=== PATIENT | female | born 1965 | race Caucasian/White ===

== ENCOUNTER → 2017-03-05 | Outpatient (REF) | payer BC | LOC: M LAB REF 13:03 | PROVIDERS: ATTEND Surgery | DX: R82.90 Unspecified abnormal findings in urine (principal) ==

== ENCOUNTER → 2017-05-14 | Outpatient (CLI) | payer BC ==
[~2017-05-14] MED LIST: BACL10TA2 PO; BACL1TAB9 PO; CRAN500C2 PO; D-MAPOW4 XX; ESTRCAP PO; FLUT1SPR2; GABA-279 PO; GABA-283 PO; GENT; METH1CAP4 PO; METH1TAB2 PO; MULT1TAB10 PO; OXYB5TAB10 PO; PANT40TA2 PO; POLY1POW4 PO; PROBCAP15 PO; TROS60CA2 PO; VITA1CAP6 PO; [UNRECOGNIZED DRUG - OTHER] BLADIN
[2017-05-14 17:57] LABS: WHITE BLOOD COUNT 4.5 K/mm3 (4.0-10.0)
[2017-05-14 17:58] LABS: BASO % 0.6 % (0.0-1.0); EOS # 0.1 K/mm3 (0.0-0.50); EOS % 2.1 % (0.0-3.0); LARGE UNSTAINED CELL # 0.1 K/mm3 (0.0-0.4); LARGE UNSTAINED CELL % 2.4 % (0.0-4.0); LYMPH # 1.6 K/mm3 (1.5-4.5); LYMPH % 35.8 % (24.0-44.0); MEAN CORPUSCULAR HEMOGLOBIN 30.8 pg (27.0-33.0); MEAN CORPUSCULAR HGB CONC 34.3 g/dl (32.0-36.5); MEAN CORPUSCULAR VOLUME 89.7 fl (80.0-96.0); MONO # 0.3 K/mm3 (0.0-0.8); MONO % 5.5 % (0.0-5.0); NEUTROPHILS # 2.4 K/mm3 (1.8-7.7); NEUTROPHILS % 53.6 % (36.0-66.0); PLATELET COUNT, AUTOMATED 380 k/mm3 (150-450); RED CELL DISTRIBUTION WIDTH 12.3 % (11.5-14.5)
[2017-05-14 18:20] LABS: ALBUMIN/GLOBULIN RATIO 1.18 (1.00-1.93); ALKALINE PHOSPHATASE 70 U/L (45-117); ALT/SGPT 31 U/L (12-78); ANION GAP 9 MEQ/L (8-16); AST/SGOT 20 U/L (15-37); BILIRUBIN,TOTAL 0.3 MG/DL (0.2-1.0); BLOOD UREA NITROGEN 7 MG/DL (7-18); CALCIUM LEVEL 9.1 MG/DL (8.5-10.1); CARBON DIOXIDE LEVEL 28 MEQ/L (21-32); CHLORIDE LEVEL 106 MEQ/L (98-107); CREATININE FOR GFR 0.64 MG/DL (0.55-1.02); GLOMERULAR FILTRATION RATE > 60.0 (>51); GLUCOSE, FASTING 87 MG/DL (70-105); POTASSIUM SERUM 4.1 MEQ/L (3.5-5.1); SODIUM LEVEL 143 MEQ/L (136-145); TOTAL PROTEIN 7.4 GM/DL (6.4-8.2)
[2017-05-15 08:40] LABS: CONTROL LINE HPYORI INT CTR LINE PRESENT
== END ==
LOC: M SMT 12:16
PROVIDERS: ATTEND Family Medicine
DX: R53.83 Other fatigue (principal); R11.0 Nausea

== ENCOUNTER → 2017-11-17 | Outpatient (CLI) | payer BC ==
[2017-11-17 14:00] LABS: APPEARANCE, URINE CLOUDY (CLEAR); BACTERIA, URINE AUTO 2+ (NEGATIVE); BILIRUBIN, URINE AUTO NEGATIVE (NEGATIVE); BLOOD, URINE BLOOD NEGATIVE (NEGATIVE); COLOR, URINE YELLOW (YELLOW); GLUCOSE, URINE (UA) AUTO NEGATIVE (NEGATIVE); KETONE, URINE AUTO NEGATIVE (NEGATIVE); LEUKOCYTE ESTERASE, URINE AUTO 2+ (NEGATIVE); MUCUS, URINE SMALL (NEGATIVE); NITRITE, URINE AUTO NEGATIVE (NEGATIVE); PROTEIN, URINE AUTO NEGATIVE (NEGATIVE); RBC, URINE AUTO 1 /HPF (0-3); SPECIFIC GRAVITY URINE AUTO 1.014 (1.002-1.035); SQUAMOUS EPITHELIAL CELL UR AU 0 /HPF (0-6); UROBILINOGEN, URINE AUTO 0.2 mg/dL (0.0-2.0); WBC, URINE AUTO 87 /HPF (0-3)
[2017-11-17 14:20] LABS: BASO % 0.8 % (0.0-1.0); EOS # 0.1 10^3/uL (0.0-0.50); EOS % 3.1 % (0.0-3.0); HEMATOCRIT 43.3 % (36.0-47.0); HEMOGLOBIN 14.3 g/dl (12.0-16.0); IMMATURE GRANULOCYTE % 0.3 % (0-3.0); LYMPH # 1.4 10^3/uL (1.5-4.5); LYMPH % 35.7 % (24.0-44.0); MEAN CORPUSCULAR HEMOGLOBIN 29.7 pg (27.0-33.0); MONO # 0.3 10^3/uL (0.0-0.8); MONO % 6.8 % (0.0-5.0); NEUTROPHILS # 2.1 10^3/uL (1.8-7.7); NEUTROPHILS % 53.3 % (36.0-66.0); PLATELET COUNT, AUTOMATED 326 10^3/uL (150-450); RED BLOOD COUNT 4.81 10^6/uL (4.00-5.40); RED CELL DISTRIBUTION WIDTH 12.3 % (11.5-14.5); WHITE BLOOD COUNT 3.8 10^3/uL (4.0-10.0)
[2017-11-17 14:38] LABS: ALBUMIN 4.3 GM/DL (3.2-5.2); ALBUMIN/GLOBULIN RATIO 1.39 (1.00-1.93); ALKALINE PHOSPHATASE 72 U/L (45-117); ALT/SGPT 36 U/L (12-78); ANION GAP 5 MEQ/L (8-16); AST/SGOT 23 U/L (7-37); BILIRUBIN,TOTAL 0.3 MG/DL (0.2-1.0); BLOOD UREA NITROGEN 11 MG/DL (7-18); CALCIUM LEVEL 9.2 MG/DL (8.5-10.1); CARBON DIOXIDE LEVEL 32 MEQ/L (21-32); CHLORIDE LEVEL 105 MEQ/L (98-107); FREE T4 1.04 NG/DL (0.76-1.46); GLOMERULAR FILTRATION RATE > 60.0 (>51); GLUCOSE, FASTING 85 MG/DL (70-100); MAGNESIUM LEVEL 2.1 MG/DL (1.8-2.4); POTASSIUM SERUM 3.9 MEQ/L (3.5-5.1); SODIUM LEVEL 142 MEQ/L (136-145); TOTAL PROTEIN 7.4 GM/DL (6.4-8.2)
[2017-11-17 14:44] LABS: TOTAL 25(OH) VITAMIN D 33.9 NG/ML (30.0-100.0)
[2017-11-17 14:45] LABS: VITAMIN B12 LEVEL 667 PG/ML (247-911)
== END ==
LOC: M SMT 09:43
DX: R25.2 Cramp and spasm (principal); G82.22 Paraplegia, incomplete; N31.9 Neuromuscular dysfunction of bladder, unspecified; K59.2 Neurogenic bowel, not elsewhere classified; M79.2 Neuralgia and neuritis, unspecified; Z87.440 Personal history of urinary (tract) infections; R40.0 Somnolence
CPT/HCPCS: 83735

== ENCOUNTER → 2019-08-30 | Outpatient (CLI) | payer BC ==
[~2019-08-30] MED LIST changes: +GABA-1171 PO; -GABA-279 PO; -GABA-283 PO; +GABA-845 PO; +METH-855 PO; -METH1TAB2 PO; -PANT40TA2 PO; +PANT40TA3 PO; -POLY1POW4 PO; +POLY33503 PO
[2019-08-30 14:05] LABS: BASO % 0.6 % (0.0-1.0); EOS # 0.1 10^3/uL (0.0-0.5); EOS % 3.5 % (0.0-3.0); HEMATOCRIT 42.3 % (36.0-47.0); HEMOGLOBIN 13.8 g/dl (12.0-15.5); LYMPH % 29.2 % (24.0-44.0); MEAN CORPUSCULAR HGB CONC 32.6 g/dl (32.0-36.5); MONO # 0.3 10^3/uL (0.0-0.8); MONO % 8.5 % (0.0-5.0); NEUTROPHILS % 57.9 % (36.0-66.0); PLATELET COUNT, AUTOMATED 320 10^3/uL (150-450); WHITE BLOOD COUNT 3.4 10^3/uL (4.0-10.0)
[2019-08-30 14:29] LABS: ALBUMIN 4.3 GM/DL (3.2-5.2); ALT/SGPT 36 U/L (12-78); BILIRUBIN,TOTAL 0.4 MG/DL (0.2-1.0); BLOOD UREA NITROGEN 14 MG/DL (7-18); CALCIUM LEVEL 9.4 MG/DL (8.5-10.1); CARBON DIOXIDE LEVEL 31 MEQ/L (21-32); CHLORIDE LEVEL 105 MEQ/L (98-107); CHOLESTEROL LEVEL 265 MG/DL (<200); CHOLESTEROL RISK RATIO 4.206 (<5); CREATININE FOR GFR 0.77 MG/DL (0.55-1.30); GLOMERULAR FILTRATION RATE > 60.0 (>51); GLUCOSE, FASTING 80 MG/DL (70-100); HDL CHOLESTEROL 63 MG/DL (>40); LDL CHOLESTEROL 185 MG/DL (<100); NON-HDL-C 202 MG/DL; SODIUM LEVEL 143 MEQ/L (136-145); TOTAL PROTEIN 7.5 GM/DL (6.4-8.2); TRIGLYCERIDES LEVEL 86 MG/DL (<150)
== END ==
LOC: M PLALAB 08:54
PROVIDERS: ATTEND Family Medicine
DX: Z00.00 Encounter for general adult medical examination without abnormal findings (principal); E55.9 Vitamin D deficiency, unspecified

== ENCOUNTER → 2019-09-27 | Outpatient (CLI) | payer BC ==
[2019-09-27 19:10] LABS: BASO % 0.5 % (0.0-1.0); EOS # 0.2 10^3/uL (0.0-0.5); EOS % 3.7 % (0.0-3.0); HEMATOCRIT 43.2 % (36.0-47.0); LYMPH # 1.5 10^3/uL (1.5-5.0); LYMPH % 35.5 % (24.0-44.0); MEAN CORPUSCULAR HGB CONC 32.4 g/dl (32.0-36.5); MEAN CORPUSCULAR VOLUME 92.5 fl (80.0-96.0); MONO # 0.3 10^3/uL (0.0-0.8); MONO % 7.8 % (0.0-5.0); NEUTROPHILS # 2.3 10^3/uL (1.5-8.5); NEUTROPHILS % 52.3 % (36.0-66.0); PLATELET COUNT, AUTOMATED 312 10^3/uL (150-450); RED BLOOD COUNT 4.67 10^6/uL (4.00-5.40); WHITE BLOOD COUNT 4.3 10^3/uL (4.0-10.0)
[2019-09-27 19:27] LABS: ALBUMIN 4.3 GM/DL (3.2-5.2); ALT/SGPT 33 U/L (12-78); BILIRUBIN,DIRECT 0.1 MG/DL (0.0-0.2); BILIRUBIN,TOTAL 0.3 MG/DL (0.2-1.0); BLOOD UREA NITROGEN 11 MG/DL (7-18); CALCIUM LEVEL 9.2 MG/DL (8.5-10.1); CARBON DIOXIDE LEVEL 31 MEQ/L (21-32); CHLORIDE LEVEL 104 MEQ/L (98-107); CREATININE FOR GFR 0.69 MG/DL (0.55-1.30); GLOMERULAR FILTRATION RATE > 60.0 (>51); GLUCOSE, FASTING 90 MG/DL (70-100); PHOSPHORUS LEVEL 3.5 MG/DL (2.5-4.9); POTASSIUM SERUM 3.6 MEQ/L (3.5-5.1); SODIUM LEVEL 142 MEQ/L (136-145); TOTAL PROTEIN 7.3 GM/DL (6.4-8.2)
--- NOTE | 2019-09-28 01:41 | REPPI ---
Clinical: Monitoring . Comparison: 11/26/2011 . Technique: PA and lateral. Findings: The mediastinum and cardiac silhouette are normal. Evidence of prior thoracic spine fixation. The lung briseno are clear and without acute consolidation, effusion, or pneumothorax. Impression: 1. No acute cardiopulmonary process. Electronically Signed by Deejay Smith MD 09/28/2019 01:32 A
== END ==
LOC: M PLAIMG 15:26
PROVIDERS: ATTEND Nurse Practitioner
DX: L40.0 Psoriasis vulgaris (principal); Z51.81 Encounter for therapeutic drug level monitoring

== ENCOUNTER → 2019-11-18 | Outpatient (REF) | payer BC | LOC: M SFHCWAGY 09:57 | PROVIDERS: ATTEND Nurse Practitioner Family | DX: Z12.4 Encounter for screening for malignant neoplasm of cervix (principal) | CPT/HCPCS: 87624; G0123 ==

== ENCOUNTER 2020-02-29 22:46 | Emergency (ER) | payer BC ==
[~2020-02-29] VITALS: Ht 160 cm; Wt 69.5 kg
[2020-02-29] MEDS ORDERED: NS 1,000 ML IV ONE (23:30)
[2020-02-29] MEDS ORDERED: METOCLOPRAMIDE INJ 10MG/2ML VIAL (J2765 PER 1) IV ONE (23:30)
[2020-02-29] MEDS ORDERED: ACETAMINOPHEN TAB 650MG DOSE (2X325MG) PO ONE (23:30)
[2020-02-29 23:38] LABS: BASO % 0.2 % (0.0-1.0); EOS # 0.1 10^3/uL (0.0-0.5); EOS % 0.6 % (0.0-3.0); HEMATOCRIT 42.5 % (36.0-47.0); HEMOGLOBIN 14.1 g/dl (12.0-15.5); LYMPH # 0.7 10^3/uL (1.5-5.0); MEAN CORPUSCULAR HEMOGLOBIN 30.3 pg (27.0-33.0); MEAN CORPUSCULAR HGB CONC 33.2 g/dl (32.0-36.5); MEAN CORPUSCULAR VOLUME 91.2 fl (80.0-96.0); MONO # 1.1 10^3/uL (0.0-0.8); MONO % 8.2 % (0.0-5.0); NEUTROPHILS # 11.2 10^3/uL (1.5-8.5); NEUTROPHILS % 85.7 % (36.0-66.0); PLATELET COUNT, AUTOMATED 271 10^3/uL (150-450); RED BLOOD COUNT 4.66 10^6/uL (4.00-5.40); WHITE BLOOD COUNT 13.1 10^3/uL (4.0-10.0)
[2020-02-29] MEDS ORDERED: KETOROLAC 30 MG/ML 1ML VIAL IV ONE (23:45)
[2020-03-01 00:02] LABS: ALBUMIN 4.2 GM/DL (3.2-5.2); ALT/SGPT 41 U/L (12-78); BILIRUBIN,DIRECT 0.1 MG/DL (0.0-0.2); BILIRUBIN,TOTAL 0.5 MG/DL (0.2-1.0); CK-MB VALUE MASS < 1.0 NG/ML (<3.6); CPK CREATINE PHOSPHOKINASE 86 U/L (26-192); LIPASE 156 U/L (73-393); MB/CK RELATIVE INDEX 1.16 (< OR =4); TOTAL PROTEIN 7.8 GM/DL (6.4-8.2); TROPONIN I < 0.02 NG/ML (< 0.10)
[2020-03-01] MEDS ORDERED: REGL10TA6 PO (01:29)
[2020-03-01] MEDS ORDERED: ONDA4TAB6 PO (01:29)
[2020-03-01 01:31] VITALS: BP 95/51
--- NOTE | 2020-03-01 08:30 | ECGEPIP ---
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
== END 2020-03-01 02:25 | disposition home or self-care (01) ==
LOC: M ED 22:46
DX: K52.9 Noninfective gastroenteritis and colitis, unspecified (principal); N39.0 Urinary tract infection, site not specified; A49.8 Other bacterial infections of unspecified site; N31.9 Neuromuscular dysfunction of bladder, unspecified; Z88.2 Allergy status to sulfonamides; Z88.8 Allergy status to other drugs, medicaments and biological substances; Z79.899 Other long term (current) drug therapy
CPT/HCPCS: 51701; 80047; 80076; 81001; 82550; 82553; 83690; 84484; 85025; 87088; 87186; 93005; 93041; 96374; 96375; 99285; J1885; J2765

== ENCOUNTER → 2021-01-12 | Outpatient (REF) | payer BC ==
[~2021-01-12] MED LIST changes: +ONDA4TAB6 PO; +PANT40TA29 PO; -PANT40TA3 PO; +REGL10TA6 PO
== END ==
LOC: M LAB REF 17:02
PROVIDERS: ATTEND Surgery
DX: Z87.440 Personal history of urinary (tract) infections (principal)

== ENCOUNTER 2021-07-22 01:34 | Emergency (ER) | payer BC ==
[~2021-07-22] VITALS: Ht 160 cm; Wt 73.0 kg
[~2021-07-22 01:34] MED LIST changes: +GABA-283 PO; -GABA-845 PO
--- OUTSIDE RECORDS SUMMARY | 2021-07-22 01:40 | CCD | Continuity of Care Document ---
Author Author Christy GUERRERO M.D. Organization Unknown Address [address] [place] [id number] Phone [phone] Care Team Providers Care Edge Kitter Name Role Phone Ana Paula Figueroa M.D. AUTM [phone] Problems Active Problems Provider Date Obstructive sleep apnea syndrome Kar Guerrero M.D. Onset: 01/04/2016 Low back pain Kar Guerrero M.D. Onset: 01/04/2016 Incomplete paraplegia Kar Guerrero M.D. Onset: 01/04/2016 Hypersomnia Kar Guerrero M.D. Onset: 01/04/2016 Periodic limb movement disorder Kar Guerrero M.D. Onset: 0 05/07/2016 Migraine without aura, not refractory Kar Guerrero M.D. On set: 07/17/2021 Social History Type Date Description Comments Sex Unknown ETOH Use Denies alcohol use Tobacco Use Start: Unknown Patient has never smoked Recreational Drug Use Never Used Drugs Allergies and adverse reactions Active Allergies Criticality Reaction | Severity Comments Date Sulfa Antibiotics Unable to assess criticality 01/04/2016 Medications Description No Information Available Immunizations Description No Information Available Vital Signs Date Vital Result Comment 01/04/2016 9:08am BP Systolic 130 mmHg BP Diastolic 85 mmHg Heart Rate 78 /min Respiratory Rate 16 /min Height 62 inches 5'2" Weight 150.00 lb BMI (Body Mass Index) 27.4 kg/m2 [place] Body Weight 110 lb Results Description No Information Available Procedures Date Code Description Status 07/17/2021 73967 Office/Outpatient Established Mo d MDM 30-39 Min Completed Medical Devices Description No Information Available Encounters Type Date Location Provider Dx Diagnosis Office Visit 07/17/2021 2:30p Main office - [place] [facility] G47.33 Obstructive sleep apnea (adult) (pediatric) M54.59 Other low back pain G82.22 Paraplegia, incomplete G47.61 Periodic limb movement disor guy G43.009 Migraine w/o aura, not intra ctable, w/o status migrainosus Assessments Date Code Description Provider 07/17/2021 G47.33 Obstructive sleep apnea (adult) (pediatric) Kar Guerrero M.D. 07/17/2021 M54.59 Other low back pain Kar Guerrero M.D. 07/17/2021 G82.22 Paraplegia, incomplete Kar Chacko i, M.D. 07/17/2021 G47.61 Periodic limb movement disorder Kar Guerrero M.D. 07/17/2021 G43.009 Migraine without aur a, not intractable, without status migrainosus Kar Guerrero M.D. Plan of Treatment Future Appointment(s):* 07/11/2022 2:30 pm - Kar Guerrero M.D. at Main office - [place] Functional Status Description No Information Available Mental Status Description No Information Available Referrals Description No Information Available
--- OUTSIDE RECORDS SUMMARY | 2021-07-22 01:40 | CCD ---
Author Author [facility] Organization [facility] Address Unknown Phone Unavailable Care Team Providers Care Inspection Engineer Name Role Phone Kar Guerrero MD Unavailable Unavailable Kar Guerrero MD Unavailable Unavailable Kar Guerrero MD Unavailable Unavailable Kar Guerrero MD Unavailable Unavailable Kar Guerrero MD Unavailable Unavailable Kar Guerrero MD Unavailable Unavailable Kar Guerrero MD Unavailable Unavailable Kar Guerrero MD Unavailable Unavailable Kar Guerrero MD Unavailable Unavailable Kar Guerrero MD Unavailable Unavailable Kar Guerrero MD Unavailable Unavailable Kar Guerrero MD Unavailable Unavailable Kar Guerrero MD Unavailable Unavailable Kar Guerrero MD Unavailable Unavailable Kar Guerrero MD Unavailable Unavailable Kar Guerrero MD Unavailable Unavailable Kar Guerrero MD Unavailable Unavailable Kar Guerrero MD Unavailable Unavailable Kar Guerrero MD Unavailable Unavailable Kar Guerrero MD Unavailable Unavailable Kar Guerrero MD Unavailable Unavailable Kar Guerrero MD Unavailable Unavailable Kar Guerrero MD Unavailable Unavailable Kar Guerrero MD Unavailable Unavailable Kar Guerrero MD Unavailable Unavailable Kar Guerrero MD Unavailable Unavailable Kar Guerrero MD Unavailable Unavailable Kar Guerrero MD Unavailable Unavailable Kar Guerrero MD Unavailable Unavailable Kar Guerrero MD Unavailable Unavailable Kar Guerrero MD Unavailable Unavailable Kar Guerrero MD Unavailable Unavailable Kar Guerrero MD Unavailable Unavailable Kar Guerrero MD Unavailable Unavailable Kar Guerrero MD Unavailable Unavailable Kar Guerrero MD Unavailable Unavailable Kar Guerrero MD Unavailable Unavailable Kar Guerrero MD Unavailable Unavailable Kar Guerrero MD Unavailable Unavailable Kar Guerrero MD Unavailable Unavailable Kar Guerrero MD Unavailable Unavailable Kar Guerrero MD Unavailable Unavailable Kar Guerrero MD Unavailable Unavailable Kar Guerrero MD Unavailable Unavailable Kar Guerrero MD Unavailable Unavailable Kar Guerrero MD Unavailable Unavailable Kar Guerrero MD Unavailable Unavailable Kar Guerrero MD Unavailable Unavailable Kar Guerrero MD Unavailable Unavailable Kar Guerrero MD Unavailable Unavailable Kar Guerrero MD Unavailable Unavailable Henrique Nguyenitriy Unavailable Unavailable Henrique Nguyenitriy Unavailable Unavailable Henrique Nguyenitriy Unavailable Unavailable Henrique Nguyenitrityshawn GUEVARA Unavailable Unavailable Henrique Nguyenitrityshawn GUEVARA Unavailable Unavailable Henrique Nguyenitriy Unavailable Unavailable Henrique Nguyenitriy Unavailable Unavailable Henrique Nguyenitriy Unavailable Unavailable Henrique Nguyenitriy Unavailable Unavailable Henrique Nguyenitrityshawn GUEVARA Unavailable Unavailable Henrique Nguyenitriy Unavailable Unavailable Henrique Nguyenitriy Unavailable Unavailable Henrique Nguyenitrityshawn GUEVARA Unavailable Unavailable Henrique Nguyenitrityshawn GUEVARA Unavailable Unavailable Henrique Nguyenitrityshawn GUEVARA Unavailable Unavailable Henrique Nguyenitriy Unavailable Unavailable Henrique Nguyenitriy Unavailable Unavailable Henrique Nguyenitriy Unavailable Unavailable Henrique Nguyenitrityshawn GUEVARA Unavailable Unavailable Henrique Nguyenitrityshawn GUEVARA Unavailable Unavailable Henrique Nguyenitriy Unavailable Unavailable ChriskyHenriqueAnanda Unavailable Unavailable Jose LolamargaritokyHenriqueAnanda Unavailable Unavailable Henrique Nguyenitriy Unavailable Unavailable Henrique Nguyenitriy Unavailable Unavailable Henrique Nguyenitriy Unavailable Unavailable Jose LolamargaritokyHenriqueAnanda Unavailable Unavailable Jose LolamargaritokyHenriqueAnanda Unavailable Unavailable Jose Lolavsky Ananda Unavailable Unavailable Jose LolamargaritokyHenriqueAnanda Unavailable Unavailable Jose LolamargaritokyHenriqueAnanda Unavailable Unavailable Nikolavsky, Ananda MD Unavailable Unavailable Nikolavsky, Ananda MD Unavailable Unavailable Nikolavsky, Ananda MD Unavailable Unavailable Nikolavsky, Ananda MD Unavailable Unavailable Nikolavsky, Ananda MD Unavailable Unavailable Nikolavsky, Ananda MD Unavailable Unavailable Nikolavsky, Ananda MD Unavailable Unavailable Nikolavsky, Ananda MD Unavailable Unavailable Nikolavsky, Ananda MD Unavailable Unavailable Nikolavsky, Ananda MD Unavailable Unavailable Nikolavsky, Ananda MD Unavailable Unavailable Nikolavsky, Ananda MD Unavailable Unavailable Nikolavsky, Ananda MD Unavailable Unavailable Nikolavsky, Ananda MD Unavailable Unavailable Nikolavsky, Ananda MD Unavailable Unavailable Nikolavsky, Ananda MD Unavailable Unavailable Nikolavsky, Ananda MD Unavailable Unavailable Nikolavsky, Ananda MD Unavailable Unavailable Jose Lolavsky, Ananda MD Unavailable Unavailable Robert Solomon Unavailable Pleskach, Kita OFFICIAL COURT INTERPRETER Unavailable Unavailable Pleskach, Kita OFFICIAL COURT INTERPRETER Unavailable Unavailable Pleskach, Kita OFFICIAL COURT INTERPRETER Unavailable Unavailable Pleskach, Kita OFFICIAL COURT INTERPRETER Unavailable Unavailable Pleskach, Kita OFFICIAL COURT INTERPRETER Unavailable Unavailable Pleskach, Kita OFFICIAL COURT INTERPRETER Unavailable Unavailable Pleskach, Kita OFFICIAL COURT INTERPRETER Unavailable Unavailable Pleskach, Kita OFFICIAL COURT INTERPRETER Unavailable Unavailable Pleskach, Kita OFFICIAL COURT INTERPRETER Unavailable Unavailable Pleskach, Kita OFFICIAL COURT INTERPRETER Unavailable Unavailable Pleskach, Kita OFFICIAL COURT INTERPRETER Unavailable Unavailable Pleskach, Kita OFFICIAL COURT INTERPRETER Unavailable Unavailable Pleskach, Kita OFFICIAL COURT INTERPRETER Unavailable Unavailable Pleskach, Kita OFFICIAL COURT INTERPRETER Unavailable Unavailable Pleskach, Kita OFFICIAL COURT INTERPRETER Unavailable Unavailable Pleskach, Kita OFFICIAL COURT INTERPRETER Unavailable Unavailable Pleskach, Kita OFFICIAL COURT INTERPRETER Unavailable Unavailable Pleskach, Kita OFFICIAL COURT INTERPRETER Unavailable Unavailable Pleskach, Kita OFFICIAL COURT INTERPRETER Unavailable Unavailable Pleskach, Kita OFFICIAL COURT INTERPRETER Unavailable Unavailable Pleskach, Kita OFFICIAL COURT INTERPRETER Unavailable Unavailable Pleskach, Kita OFFICIAL COURT INTERPRETER Unavailable Unavailable Pleskach, Kita OFFICIAL COURT INTERPRETER Unavailable Unavailable Pleskach, Kita OFFICIAL COURT INTERPRETER Unavailable Unavailable Pleskach, Kita OFFICIAL COURT INTERPRETER Unavailable Unavailable Pleskach, Kita OFFICIAL COURT INTERPRETER Unavailable Unavailable Pleskach, Kita OFFICIAL COURT INTERPRETER Unavailable Unavailable Pleskach, Kita OFFICIAL COURT INTERPRETER Unavailable Unavailable Pleskach, Kita OFFICIAL COURT INTERPRETER Unavailable Unavailable Pleskach, Kita OFFICIAL COURT INTERPRETER Unavailable Unavailable Pleskach, Kita OFFICIAL COURT INTERPRETER Unavailable Unavailable Pleskach, Kita OFFICIAL COURT INTERPRETER Unavailable Unavailable Pleskach, Kita OFFICIAL COURT INTERPRETER Unavailable Unavailable Pleskach, Kita OFFICIAL COURT INTERPRETER Unavailable Unavailable Pleskach, Kita OFFICIAL COURT INTERPRETER Unavailable Unavailable Pleskach, Kita OFFICIAL COURT INTERPRETER Unavailable Unavailable Pleskach, Kita OFFICIAL COURT INTERPRETER Unavailable Unavailable Pleskach, Kita OFFICIAL COURT INTERPRETER Unavailable Unavailable Pleskach, Kita OFFICIAL COURT INTERPRETER Unavailable Unavailable Pleskach, Kita OFFICIAL COURT INTERPRETER Unavailable Unavailable Pleskach, Kita OFFICIAL COURT INTERPRETER Unavailable Unavailable Pleskach, Kita OFFICIAL COURT INTERPRETER Unavailable Unavailable Pleskach, Kita OFFICIAL COURT INTERPRETER Unavailable Unavailable Pleskach, Kita OFFICIAL COURT INTERPRETER Unavailable Unavailable Quiñonez, T Mily GUEVARA Unavailable Unavailable Quiñonez, T Mily GUEVARA Unavailable Unavailable Quiñonez, T Mily GUEVARA Unavailable Unavailable Quiñonez, T Mily GUEVARA Unavailable Unavailable Quiñonez, T Mily GUEVARA Unavailable Unavailable Quiñonez, T Mily GUEVARA Unavailable Unavailable Quiñonez, T Mily GUEVARA Unavailable Unavailable Quiñonez, T Mily GUEVARA Unavailable Unavailable Quiñonez, T Mily GUEVARA Unavailable Unavailable Quiñonez, T Mily GUEVARA Unavailable Unavailable Quiñonez, T Mily GUEVARA Unavailable Unavailable Quiñonez, T Mily GUEVARA Unavailable Unavailable Quiñonez, T Mily GUEVARA Unavailable Unavailable Quiñonez, T Mily GUEVARA Unavailable Unavailable Quiñonez, T Mily GUEVARA Unavailable Unavailable Quiñonez, T Mily GUEVARA Unavailable Unavailable Quiñonez, T Mily GUEVARA Unavailable Unavailable Quiñonez, T Mily GUEVARA Unavailable Unavailable Quiñonez, T Mily GUEVARA Unavailable Unavailable Quiñonez, T Mily GUEVARA Unavailable Unavailable Quiñonez, T Mily GUEVARA Unavailable Unavailable Quiñonez, T Mily GUEVARA Unavailable Unavailable Quiñonez, T Mily GUEVARA Unavailable Unavailable Quiñonez, T Mily GUEVARA Unavailable Unavailable Quiñonez, T Mily GUEVARA Unavailable Unavailable Quiñonez, T Mily GUEVARA Unavailable Unavailable Quiñonez, T Mily GUEVARA Unavailable Unavailable Quiñonez, T Mily GUEVARA Unavailable Unavailable Quiñonez, T Mily GUEVARA Unavailable Unavailable Quiñonez, T Mily GUEVARA Unavailable Unavailable Quiñonez, T Mily GUEVARA Unavailable Unavailable Quiñonez, T Mily GUEVARA Unavailable Unavailable Quiñonez, T Mily GUEVARA Unavailable Unavailable Quiñonez, T Mily GUEVARA Unavailable Unavailable Quiñonez, T Mily GUEVARA Unavailable Unavailable Quiñonez, T Mily GUEVARA Unavailable Unavailable Quiñonez, T Mily GUEVARA Unavailable Unavailable Quiñonez, T Mily GUEVARA Unavailable Unavailable Quiñonez, T Mily GUEVARA Unavailable Unavailable Quiñonez, T Mily MD Unavailable Unavailable Quiñonez, T Mily MD Unavailable Unavailable Quiñonez, T Mily MD Unavailable Unavailable Quiñonez, T Mily MD Unavailable Unavailable Quiñonez, T Mily MD Unavailable Unavailable Quiñonez, T Mily MD Unavailable Unavailable Quiñonez, T Mily MD Unavailable Unavailable Quiñonez, T Mily MD Unavailable Unavailable Quiñonez, T Mily MD Unavailable Unavailable Quiñonez, T Mily MD Unavailable Unavailable Quiñonez, T Mily MD Unavailable Unavailable Quiñonez, T Mily MD Unavailable Unavailable Quiñonez, T Mily MD Unavailable Unavailable Quiñonez, T Mily MD Unavailable Unavailable Quiñonez, T Mily MD Unavailable Unavailable Quiñonez, T Mily MD Unavailable Unavailable Quiñonez, T Mily MD Unavailable Unavailable Quiñonez, T Mily MD Unavailable Unavailable Quiñonez, T Mily MD Unavailable Unavailable Quiñonez, T Mily MD Unavailable Unavailable Quiñonez, T Mily MD Unavailable Unavailable Quiñonez, T Mily MD Unavailable Unavailable Quiñonez, T Mily MD Unavailable Unavailable Quiñonez, T Mily MD Unavailable Unavailable Quiñonez, T Mily MD Unavailable Unavailable Quiñonez, T Mily MD Unavailable Unavailable Quiñonez, T Mily MD Unavailable Unavailable Quiñonez, T Mily MD Unavailable Unavailable Quiñonez, T Mily MD Unavailable Unavailable Quiñonez, T Mily MD Unavailable Unavailable Quiñonez, T Mily MD Unavailable Unavailable WILEY HUGHESREY Unavailable Unavailable SOLOMON, R AMIE Unavailable Unavailable Re-disclosure Warning The records that you are about to access may contain information from federally-assisted alcohol or drug abuse programs. If such information is present, then the following federally mandated warning applies: This information has been disclosed to you from records protected by federal confidentiality rules (42 CFR part 2). The federal rules prohibit you from making any further disclosure of this information unless further disclosure is expressly permitted by the written consent of the person to whom it pertains or as otherwise permitted by 42 CFR part 2. A general authorization for the release of medical or other information is NOT sufficient for this purpose. The Federal rules restrict any use of the information to criminally investigate or prosecute any alcohol or drug abuse patient.The records that you are about to access may contain highly sensitive health information, the redisclosure of which is protected by Article 27-F of the [facility] Public Health law. If you continue you may have access to information: Regarding HIV / AIDS; Provided by facilities licensed or operated by the [facility] Office of Mental Health; or Provided by the [facility] Office for People With Developmental Disabilities. If such information is present, then the following [facility] mandated warning applies: This information has been disclosed to you from confidential records which are protected by state law. State law prohibits you from making any further disclosure of this information without the specific written consent of the person to whom it pertains, or as otherwise permitted by law. Any unauthorized further disclosure in violation of state law may result in a fine or detention sentence or both. A general authorization for the release of medical or other information is NOT sufficient authorization for further disc losure. Family History Family Member Name Family Member Gender Family Member Status Date o f Status Description Data Source(s) Unknown Unknown Problem [facility] ([facility] Unknown Unknown Problem [facility] ([facility], ) Encounters Encounter Providers Location Date Indications Data Source(s ) Outpatient Attender: Mily Quiñonez MD 09/19/2021 12:00:00 AM [facility] Outpatient Attender: Ananda Nguyen MD 08/13/2021 12:0 0:00 AM [facility] Outpatient Attender: Ananda Nguyen MD 07/30/2021 12:0 0:00 AM [facility] Outpatient Attender: Kar Guerrero MD Main office [facility] 07/17/2021 02:30:00 PM EDT [facility] ([facility] [place], ) Outpatient Attender: GENIE MURILLO V 2021 12:00 :00 AM [facility] Outpatient Attender: Mily Quiñonez MD 06/04/2021 12:00:00 AM [facility] Outpatient Attender: Amie SolomonAttender: AMIE SOLOMON 06/01/2021 12:00:00 AM [facility] Outpatient Attender: Mily Quiñonez MD 04/26/2021 12:00:00 AM [facility] Outpatient Attender: Mily Quiñonez MD 02/15/2021 12:00:00 AM [facility] Outpatient Attender: Ananda Nguyen MD [id number] 02/06/2021 12:00:00 AM EDT Urinary tract infection, site not specified [facility] Urinary tract infection, site not specif ied Outpatient Attender: Mily [id number] 01/24 12:00:00 AM EDT - 01/24/2021 03:37:19 PM EDT Paraplegia, incomplete [facility] Paraplegia, incomplete Outpatient Attender: Ananda Nguyen MD 01/23/2021 12:0 0:00 AM EDT [facility] Outpatient Attender: Mily Quiñonez MD [id number] 10/19 12:00:00 AM EST - 10/19/2020 11:36:27 AM EST Cramp and spasm [facility] Cramp and spasm Outpatient Attender: Mily Quiñonez MD 09/28/2020 12:00:00 AM EST [facility] Outpatient Attender: Kita Harper [facility] Main Office 08/25/2020 0 7:30:00 AM EST [facility] ([facility] Outpatient Attender: Mily Quiñonez MD [id number] 08/07/2020 12: 00:00 AM EST Paraplegia, incomplete [facility] Paraplegia, incomplete Outpatient Attender: Mily Quiñonez MD [id number] 05/18 12:00:00 AM EDT - 05/18/2020 01:34:16 PM EDT Paraplegia, [facility] Paraplegia, incomplete Medications Medication Brand Name Start Date Product Form Dose Route Admi nistrative Instructions Pharmacy Instructions Status Indications Reaction Description Data Source(s) BD Catheter Tip Syringe 60 ML (Catheter Syringes) 8290-72081 0 01/29/2021 12:00:00 AM EDT active History of recur rent UTIs Use as directed. USE DIRECTED TO IRRIGATE BLADDER WITH SALINE AND GENTAMICIN [facility] History of recurrent UTIs onabotulinumtoxinA 100 UNT/ML Injectable Solution onabotulinumtoxin type A (BOTOX) injection 500 Units onabotulinumtoxin type A (BOTOX) injecti on 500 Units 01/24/2021 03:30:00 PM EDT 500 U Intramuscular completed Chronic incomplete spastic paraplegia 500 Units, Intramuscular , Once RT, On Fri01/24/21 at 1530, For 1 dose [facility] Chronic incomplete spastic paraplegia Medication administered onsite sodium chloride (preservative free) 0.9 % flush 10 mL 01/24/2021 03:30:00 PM EDT 10 mL Intramuscular completed Chroni c incomplete spastic paraplegia 10 mL, Intramuscular, Once, On Wed at 1530, For 1 dose [facility] Chronic incomplete spastic paraplegia Medication administered onsite Gentamicin Sulfate 40 MG/ML Injection Solution (GARAMYCIN) 6 3323-010-02 01/23/2021 12:00:00 AM EDT active Histo ry of recurrent UTIs DRAW 3.1 ML OF GENTAMICIN. INJECT INTO 250 ML OF NORMAL SALINE. REFRIGERATE, GOOD FOR TEN DAYS. ADMINISTER INTO BLADDER. [facility] History of recurrent UTIs sodium chloride (preservative free) 0.9 % flush 10 mL 10/19/2020 05:00:00 PM EST 10 mL Intramuscular completed Chroni c incomplete spastic paraplegia 10 mL, Intramuscular, Once, [place] 10/19/20 a t 1700, For 1 dose [facility] Chronic incomplete spastic paraplegia Medication administered onsite onabotulinumtoxinA 100 UNT/ML Injectable Solution onabotulinumtoxin type A (BOTOX) injection 500 Units onabotulinumtoxin type A (BOTOX) injecti on 500 Units 10/19/2020 05:00:00 PM EST 500 U Intramuscular completed Chronic incomplete spastic paraplegia 500 Units, Intramuscular , Once RT, [place] 10/19/20 at 1700, For 1 dose [facility] Chronic incomplete spastic paraplegia Medication administered onsite Sodium Chloride 0.154 MEQ/ML Irrigation Solution Sodium Chloride 0.9 % Irrigation Solution Sodium Chloride 0.9 % Irrigation Solution 09/29/2020 12:00:00 AM EST active History of recur rent UTIs USE TO MIX WITH GENTAMICIN FOR BLADDER INSTILLATION [facility] History of recurrent UTIs methenamine hippurate 1000 MG Oral Table t Methenamine Hippurate 1 GM Oral Tablet (HIPREX) Methenamine Hippurate 1 GM Oral Tablet (HIPREX) 2019 12:00:00 AM EST 1 g Oral active Neurogenic bladder Take 1 tablet by mouth Two times daily with meals [facility] Neurogenic bladder 24 HR trospium chloride 60 MG Extended R elease Oral Capsule Trospium Chloride ER 60 MG Oral Capsule Extended Release 24 Hour Trospium Chloride ER 60 MG Oral Capsule Extended Release 24 Hour 08/28/2020 12:00:00 AM EST active TAKE 1 CAPSULE DAILY [facility] pantoprazole 40 MG Delayed Release Oral Tablet Pantoprazole Sodium 08/28/2020 12:00:00 AM EST active M [facility] ([facility] calcipotriene 0.05 MG/ML Topical Cream C alcipotriene 0.005 % External Cream (DOVONOX) Calcipotriene 0.005 % External Cream (DOVONOX) 020 12:00:00 AM EST active [facility] Prednisone 20 MG Oral Tablet Prednisone 08/25/2020 12:00:00 AM EST ORAL active [facility] 60 ACTUAT Albuterol 0.09 MG/ACTUAT Metered Dose Inhaler Albu terol Sulfate HFA 08/25/2020 12:00:00 AM EST ORAL active [facility] Fluticasone Propionate 50 MCG/ACT Nasal Suspension (FLONASE) 6083-2812-67 07/02/2020 12:00:00 AM EDT [facility] Azelastine HCl 0.1 % Nasal Solution (ASTELIN) [address]-7 07/02/2020 12:00:00 AM EDT [facility] Dexamethasone 1 MG/ML Ophthalmic Solution Dexamethasone Sodi um Phosphate 04/25/2020 12:00:00 AM EDT AURICULAR completed [facility] ([facility] Ofloxacin 3 MG/ML Otic Solution Ofloxacin (Otic) 04/25/2020 12:00:00 AM EDT AURICULAR completed [facility] ([facility] gabapentin 300 MG Oral Capsule Gabapentin 300 MG Oral Capsule (NEURONTIN) Gabapentin 300 MG Oral Capsule (NEURONTIN) 04/06/2020 12:00:00 AM EDT 300 mg Oral active Take 1 capsule by [facility] Two Times Daily [facility] Insurance Providers Payer name Policy type / Coverage type Policy ID Covered alliance party ID Covered alliance party's relationship to antunez Policy Antunez Plan Information [place] P[place] 302/307 [id number] SP [id number] [facility] [id number] Self [id number] [place] P[place] 302/307 [id number] SP [id number] EXCELLUS H [id number] Self [id number] EXCELLUS H [id number] Self [id number] [place] PPO 302/307 [id number] SP [id number] BS Of [facility] ([facility]) [id number] Self T [id number] BS Of [facility] ([facility]) [id number] Self EXCELLUS BC-BS PPO [id number] SP [id number] EXCELLUS BCBS P [id number] [id number] [place] [id number] S [id number] [place] [id number] S [id number] [place] CNY 1 [id number] [place] [id number] SELFPAY 5 UNAVAILABLE 1 UNAVAILA BLE [place] PPO 302/307 [id number] SP [id number] SELF PAY 5 UNAVAILABLE 1 UNAVAILA BLE [place] PPO 302/307 [id number] SP [id number] BS Of [facility] ([facility]) [id number] Self T [id number] BS Of [facility] ([facility]) [id number] Self T [id number] EXCELLUS BCBS B [id number] S TNY [id number] [facility] Organization ([facility]) [id number] Self T [id number] [facility] ([facility]) [id number] Self T [id number] Problems, Conditions, and Diagnoses Code Display Name Description Problem Type Effective Dates Data Source(s) N39.0 Urinary tract infection, site not specif ied Urinary tract infection, site not specified Diagnosis 02/06/2021 07:47:07 AM EDT [facility] G43.009 Migraine without aura, not refractory Mi graine without aura, not refractory Problem 07/17/2021 12:00:[address] [facility], [facility] Surgeries/Procedures Procedure Description Date Indications Data Source(s) OFFICE OUTPATIENT VISIT 25 MINUTES 07/17/2021 12:00:00 AM EDT [facility] ([facility], ) Results ID Date Data Source [id number] 02/06/2021 08:26:28 AM EDT [facility] Name Value Range Interpretation Code Description Data Linda rce(s) Supporting Document(s) Progress Note [facility] BZNFNe0jNtEXZhTw50/ZKVhzGSUnq4UeIWwdNLx6HEbfLHUmE1EzXWD6pQ1xQUZ2HSaCJdFiPqTdNEB8 [facility] [file] AgICAgICAgICAgICAgICAgICAgICAgICAgICAgICAgICAgICAgICAgICAgICAgICAgICAgICAgICAgIC ThFJNbEYWxKAEhICFcCALgDZFjXCIjWU4CDDFeOSUf ICAgICAgICAgICAgICAgICAgICAgICAgICAgICAgICAgICAgICAgICAgICAgICAgICAgICAgICAgICAg VXMlXNIdFLHbXXJdVZCgGRScJMPlHWLhFEFdVKNdBBJdMX2FVNBuEMWtTMOrNVKlFOUsKUNcUGCwJCAg ICAgICAgICAgICAgICAgICAgICAgICAgICAgICAgIC BkDTUmGARkYGXiJKXsZHYgNALiRDGsLKHkOUIpEQHqIJHqSUFvFECcQWQqKD7UILRhWCUoDWCkUXYcXX AgICAgICAgICAgICAgICAgICAgICAgICAgICAgICAgICAgICAgICAgICAgICAgICAgICAgICAgICAgIC OzYLUuJXFcTXQoXHWzWCChYJUvAXAvYGAkHN1UZJFv ICAgICAgICAgICAgICAgICAgICAgICAgICAgICAgICAgICAgICAgICAgICAgICAgICAgICAgICAgICAg BZJdJRRuWQYzPUNzEXGtEQOjFXSzBZYuVYEfGVPhBLJqJFWoAW9DFRQwDTXmLXMzLJIiXNQbSDDkFXIp ICAgICAgICAgICAgICAgICAgICAgICAgICAgICAgIC KoAJVnOFEeEBRmCQUoJJUpCAWjVPDhGKQqZYOmAHJsGFAbFCZrEEQkTSCoHROyZN7TWYKiKEFuYKSrKG AgICAgICAgICAgICAgICAgICAgICAgICAgICAgICAgICAgICAgICAgICAgICAgICAgICAgICAgICAgIC ObVWGjPMXsHPGxMDHzHMTaYDDdPJFsXTDcKRPfEN4B ICAgICAgICAgICAgICAgICAgICAgICAgICAgICAgICAgICAgICAgICAgICAgICAgICAgICAgICAgICAg LYBsTLZuPJMePUQuYIUpYDBaSCVfSAFiGLNvICAwRAAvPSEuGKRmXM1NXHXwMWMaDWMeHCPiJXPpTKGz ICAgICAgICAgICAgICAgICAgICAgICAgICAgICAgIC JqLWGiGWGjOMCiVACgVLHdWYBhUVPoTGHyZTAmTNOgABLnMXUnUILxSGDeMYLiOFVxWH2ZQHGaJBLqDS AgICAgICAgICAgICAgICAgICAgICAgICAgICAgICAgICAgICAgICAgICAgICAgICAgICAgICAgICAgIC AgICAgICAgICAgICAgICAgICAgICAgICAgICAgICAg GS9PXT83uDLys9K2RKIrSK2fzmy/Hx8ZZBwzkwGuuIAyBH1QEjFuOY6zcb2JUrSzSL6qzh0IVGhARmDl V1B3gAYtCQXdIVHDNkXdA78eTWvhDi55OTlfKEOmSuAfGHj2Po6QMeOtA7asWMSzAuE8JXYyXoF5UWAo UnK6EKTgCvLuYFIaBTQhLE0QYWCrS162ecHwEY4SCd 3HVaFkCO7vdt1PLtfiKJAxCgrTGvd7DSqzVF3ImKLftFRvRWWbGMXVNaKtR6ixp8AyUiptAUTUOYwmDZ 4Pv3OscBOuJMk+Kg6DMG1ot3NxTEwwRAMwFZ7jlu6JVJtPTyAhI8VszWhuUKWas3pzZJHpRY0gvKEbLS E6XSBwcEQemDnrItezs1dvjzZwwWlwLJQjPDRsVG9q ZC9yBJTuTUT1VlGcECLZTS1URCBoLTMagUIuEIQtGBCRYN7XJCgzYOR8IVXvquHegKFgQPjwSY9MQQYl bnQgMjggMCBSDQo+Wi9NER2tc6CuVGcaPOByWK0ukw4ZTObXRlWrS0A0pOFlA7H2PWshGl5BNPWuZNYk EdIoPSNMRRmwBZ0FIX5fyrT3XU8CbTHjVSYnLVSfzF MvCVt6T85dvAWkPFzeED4CHRS+Lisa+Mn1CYBLpGHVbIRKqCfNbHSKFWqKyO9ZsR1FHt5FvW8BnPL70tS qsjmMfSZolTJ7LYS3tGKWvRYQUBC1BpPFhhR2xzoCcKQLwYWJIIaSmP52wmZMmXTReQIO6PCCeDa0PGK PkR1DymzQrhVqbcbTqTCUiVBLSRV3RPQtyauAjqDFb pMrgJD11vPxgFR6YLx1AHpLbVW2vln3WyPFkHk2TRPKrWJ1SWHWoJNXbNWAfEKU9OEEeQqNjYYeoDRBn MUDwLCV2CTNbXFUgWJ3EZeXvAKFaBei3OHAyCQGfJTNkjv1OFEAlCKRgOQZ8FSNhZEMnIFUrXChkZSOn KBBoDTW1NAYbHTEuBQ9UZlAtUVVqXIS2ZMIsESEvPF Wdgp4ZSFXcVFQkEEY4QJUeNQLqABAjXNavCNRjKMP3RYXqSTWfHZYwHS2UKwHyLNNsGQz0LAAtXWWeGE Nbva7MNZVtUANxYRk2MUVyBOErVNNaZVlvWZTdAWXwDEuoYUTtWFVpOW1KBbNyICHcJBBuOnXjIUNaKV Illn9XUGAvXHNwMwItGECaTAGvVNAxKIlqHCChWLAo ANakUWLnFHHbYE8YVrWjYGIsCXB7SEusEBZaIAGzpq2ZLINrQFMrEoi8GOSwBGEmDIPoAUciHBMbJIO8 PBC2NPNrQNCtAI1KDoYgBUIzIDJzZeNuBVHhXWAdhw1YUTKwTWUrYNWyMHIlOLEnMYOuACohFAAjBSZ3 VhH2GIFdPLFsTY5EHbZnUFAfKoW5AtImFSOzXMRiij 5WRWToMQLsSaW9XeMsOLPzKOVyROofVDOsDMH0RWWgPEDcLCNrSW6ITsWnZNBaSho4KwfxVWKoKGIojr 2QQGOnEAGdTXZdCoVoKRGoMODmDJqkLDKmIQA1PsNiBPHiRWJgUC9ENwYcCALpPcv8UNBfMPAjVKFcoh 2XJEEnRNLtMMSzRWYlDNNpGXRdURghRBYzHDMxFiA7 EVFrQJZqDP5VMsEfZQGpIpQ8KaIfVUAoGTExie9KDYUhHDCrEQi0RFJhJYMvCVCiCSx5bkEtgAYqIUi4 EN9SK0EspwYrAoUVBh9Ab999BPZuSNMhCn3JH4soBa3kBKHlEFOGKc0RRSu6WXBqGUm3DDBhK0O5EoO9 AXVzZGV5XIQcKEC7PJZiQGf+WPzgKGD2THGeSyC5Ig KkUWO4SPNdUtU7J8G5BDWqIPRqXg9aGTXSSl7+TLyrxYZdvAimRJKECbQeCrHeWJcbJANHMs2X ID Date Data Source [id number] 01/24/2021 03:25:34 PM EDT [facility] Name Value Range Interpretation Code Description Data Linda rce(s) Supporting Document(s) Progress Note [facility] JJUNKq4mAwMAMsOc17/IHVmeNUUxt0LxNZybIIb0CFnbQJMmA7SqBWI6eT9pSQI1LKuNZdHbDtNaOCZp lbm [file] GUqTwIkDNFsoaLi/yuwVUTSqtbFy8vyJdNjhwYa+jose enrique [file] AgICAgICAgICAgICAgICAgICAgICAgICAgICAgICAg ICAgICAgICAgICAgICAgICAgICAgICAgICAgICAgICAgICAgICAgICANCiAgICAgICAgICAgICAgICAg ICAgICAgICAgICAgICAgICAgICAgICAgICAgICAgICAgICAgICAgICAgICAgICAgICAgICAgICAgICAg ICAgICAgICAgICAgICAgICAgICAgICANCiAgICAgIC AgICAgICAgICAgICAgICAgICAgICAgICAgICAgICAgICAgICAgICAgICAgICAgICAgICAgICAgICAgIC AgICAgICAgICAgICAgICAgICAgICAgICAgICAgICAgICANCiAgICAgICAgICAgICAgICAgICAgICAgIC AgICAgICAgICAgICAgICAgICAgICAgICAgICAgICAg ICAgICAgICAgICAgICAgICAgICAgICAgICAgICAgICAgICAgICAgICAgICANCiAgICAgICAgICAgICAg ICAgICAgICAgICAgICAgICAgICAgICAgICAgICAgICAgICAgICAgICAgICAgICAgICAgICAgICAgICAg ICAgICAgICAgICAgICAgICAgICAgICAgICANCiAgIC AgICAgICAgICAgICAgICAgICAgICAgICAgICAgICAgICAgICAgICAgICAgICAgICAgICAgICAgICAgIC AgICAgICAgICAgICAgICAgICAgICAgICAgICAgICAgICAgICANCiAgICAgICAgICAgICAgICAgICAgIC AgICAgICAgICAgICAgICAgICAgICAgICAgICAgICAg ICAgICAgICAgICAgICAgICAgICAgICAgICAgICAgICAgICAgICAgICAgICAgICANCiAgICAgICAgICAg ICAgICAgICAgICAgICAgICAgICAgICAgICAgICAgICAgICAgICAgICAgICAgICAgICAgICAgICAgICAg ICAgICAgICAgICAgICAgICAgICAgICAgICAgICANCi AgICAgICAgICAgICAgICAgICAgICAgICAgICAgICAgICAgICAgICAgICAgICAgICAgICAgICAgICAgIC AgICAgICAgICAgICAgICAgICAgICAgICAgICAgICAgICAgICAgICANCiAgICAgICAgICAgICAgICAgIC AgICAgICAgICAgICAgICAgICAgICAgICAgICAgICAg ICAgICAgICAgICAgICAgICAgICAgICAgICAgICAgICAgICAgICAgICAgICAgICAgICANCjw/fPYyN2yf kGZeoeH9W8muCy0HZm2RSW7fb2UjJXEsZKzwpeKnUgyOUxZxKXFmWuvXDrd0BTymGL4TuMZoY6DuA6Nl VQneYO7AALMzQXJquCTnYZZuUGKdSmC5SQHgKMapHY 2HvBVkTZpnQRJaYPLnZfAyVXLaSQCgJASrPGJwDFVSCF5YHxPyE3WxfT22XPOXIk2+DQplbmRvYmoNCj Y3YGEgw8LxDOj4PZ5CVOQdVovsp0TqRnhvMEMOTMkpWL6ZLUQ5FQG6KXEiOe7CBGOzP320tvUdXT3PQv 3IRtVoWU9ndf1GMjpiNDSvUawFTmk6MIjtEQ9UcAGw IWoRta3rvxPortFYi2LdvcSbkUSOzHX6HHzeQGBEQUfwakBwED9YRCA2SQPcIYNeKjOdMYDjVkhgIAKE VPsVOcVkH8Ubt5QgVmC2QEBrJxWwLXsoISWiJyB1PT27vFtqQQ5PAYZvNFYoRG13CSJ7BJDcKc5YVc4O KrYtOZ6vva1LHkLfNWNdQajZGtw9BNeeYE0SaWWcC3 ZajBOer8hZSlReI2JZBSX5OQRyIe6GDFJyWbQiCRUuXEycAS1bTYLrBJDXqKeiwpN7NE9NQM9ggsXiMM 6EAdKzGf7tFy1UMoCkZ4FpU1TkRYJbPYPTUBrmCR3XWKjhPR7aHB3Oa9DZmKOkbM9kuc0OYPXrOWMqDa sibs3QQidvF0L4yCevQFEvSkqzDATEPWjsCB8OHGMh HEN7RNYfXjYtFXMQYtAzP03mWE4TS6Zth27qKdE5UZUlDuNpJRssQZ91wHzrelPebHBsyVmtCR1XSq4+ ZFqsayVvHroXIgpuJSHQUfBjZuMTJgRjJGKiUUOcWYXxNvZ8HfFaFl0HPDEdECBzROVlJcMaHAJySNFb JWaxUCFgZVF3DlZ5GIPdFAOqCJ3EOnMyFJIgVQY5QU CaDLRmDUSvnx6HXWZhJNUzPRN8MyJvMVBoUTUlNHauWLGbYUAeDwMvGLHnJRAtDT4ILfHwNGMhHRX6KE VnNJPzNOImuk4RYCNfOHVmJUA5RHWwFINlLBWwWVslTGIgBDD1VLf4QBGfHQXpEP6ELdIxXIDkWXFwRo WrMXPqBGWymv0KIUDnNIFpUaU2WTDmISRmMOQfNNwd FFMzCRY9MgXrMLBmQQZjIP7NCgSiYJGfODE1YBHlCDHfVGEwmu3EKEYfNTDaAZl7FsBnBAPdRCZyHHnt PMGtHDZ6JFhkSMTgQCTsAM2KCyZmXTAxBRDpRWXmATXsZIHulw6SDNXjQJYcCaXiYHDsGFNgZQThXTyn TJWhLZU9YON7OGXiTBIiQV6SMwKuMUVsVSv0SXTwIL EvPHBwbs0ZWJTsTEA2LAB1ILCeCENuFGTtCVtkOJVkEDXgGJGrZPCyJIUwRC7RSbUhSLLmPOTbDEWhBR MtQLObny1WCLQxOMI7BeUyAYTeGFHkNYGiRXfyFHShZGKiHzw8HQBsJYMoXO0KQtHzFWMtBECjLgzfIJ KzUSKgds0KWOHkSZM8KYCmPlDhZBWlQNXvLKowUQTp TZQ2Rtj9LROrQQXiIF5GSvUmSBAoREGhNNRyOYHqXIDvjn2IKDCqTJC8FqQ5JNXiZCBoTUVcLLwhYNWd NMW4KcIvVTWjWXUsEB5BPkPfSFOzAQO9ILOtJOQsGVRqrp6NbNPssPbkcj6QEUsDJv1FoIfkIGLrZKgk Pz5txHWvBONbCIWOOd5GswQuCICaBETBBRefBJCqID NrWZR4JSi3KST2ZYE0CZO2GFusSGd2HqCkEwLwJUo3NnU2SLTkZIC6ZyT4HHVoJdlrQHT5XWJ4EDVoBF Q4VSN6OIj+EQ1qLGl+Uv6Zr6OtzoY5rzOzRCa4GmEqEI5DYSCAV1GZVj== ID Date Data Source [id number] 10/19/2020 05:04:51 PM [facility] Name Value Range Interpretation Code Description Data Linda rce(s) Supporting Document(s) Progress Note [facility] REVYEl6gOmKFHqPu52/RNWvwSZFwd9UhYFitGSf5MIjaYPNeC4XaKIM4lX8fQSQ5IAmEYjVuQqRcIzP1 lbm [file] XTnd8zweEowL4ByATh/[facility]/xp6BFEFWHx8I6gXI2k [file] R6OjYdKD1KPj4NFoU9ZKO6qKGrPa6KWXA7EgtDUcHjYV8MAKt= ID Date Data Source [id number] 08/07/2020 04:26:46 PM [facility] Name Value Range Interpretation Code Description Data Linda rce(s) Supporting Document(s) Progress Note [facility] VTCCHx2hLfMDWsZz91/CULypTAUxy7IpJSkxBYl3UOujRCPrY6JwMXR3bL8yPMT1EAtNFuNmIdNyJYXu lbm [file] ODy1LxU2SBW2QJLsVn0ePOKVOh8+MLxkaLAleOnoPEPLVpMfBNIqZTtnMUAPAb9N ID Date Data Source [id number] 08/07/2020 04:23:35 PM [facility] Name Value Range Interpretation Code Description Data Linda rce(s) Supporting Document(s) Progress Note [facility] HQRLNp9lLnUEPwZg77/KLVlqSTMtv2ZiIZhbKQx0CPzjSAZaH3IcTJW7kJ9fYKR1EWgBLrBiGmXxUZBm lbm [file] ICAgICAgICAgICAgICAgICAgICAgICAgICAgICAgIC AgICAgICAgICAgICAgICAgICAgICAgICAgICAgICAgICAgICAgICAgICAgICAgICAgICAgICANCiAgIC AgICAgICAgICAgICAgICAgICAgICAgICAgICAgICAgICAgICAgICAgICAgICAgICAgICAgICAgICAgIC AgICAgICAgICAgICAgICAgICAgICAgICAgICAgICAg ICAgICANCiAgICAgICAgICAgICAgICAgICAgICAgICAgICAgICAgICAgICAgICAgICAgICAgICAgICAg ICAgICAgICAgICAgICAgICAgICAgICAgICAgICAgICAgICAgICAgICAgICAgICANCiAgICAgICAgICAg ICAgICAgICAgICAgICAgICAgICAgICAgICAgICAgIC AgICAgICAgICAgICAgICAgICAgICAgICAgICAgICAgICAgICAgICAgICAgICAgICAgICAgICAgICANCi AgICAgICAgICAgICAgICAgICAgICAgICAgICAgICAgICAgICAgICAgICAgICAgICAgICAgICAgICAgIC AgICAgICAgICAgICAgICAgICAgICAgICAgICAgICAg ICAgICAgICANCiAgICAgICAgICAgICAgICAgICAgICAgICAgICAgICAgICAgICAgICAgICAgICAgICAg ICAgICAgICAgICAgICAgICAgICAgICAgICAgICAgICAgICAgICAgICAgICAgICAgICANCiAgICAgICAg ICAgICAgICAgICAgICAgICAgICAgICAgICAgICAgIC AgICAgICAgICAgICAgICAgICAgICAgICAgICAgICAgICAgICAgICAgICAgICAgICAgICAgICAgICAgIC ANCiAgICAgICAgICAgICAgICAgICAgICAgICAgICAgICAgICAgICAgICAgICAgICAgICAgICAgICAgIC AgICAgICAgICAgICAgICAgICAgICAgICAgICAgICAg ICAgICAgICAgICANCiAgICAgICAgICAgICAgICAgICAgICAgICAgICAgICAgICAgICAgICAgICAgICAg ICAgICAgICAgICAgICAgICAgICAgICAgICAgICAgICAgICAgICAgICAgICAgICAgICAgICANCiAgICAg ICAgICAgICAgICAgICAgICAgICAgICAgICAgICAgIC AgICAgICAgICAgICAgICAgICAgICAgICAgICAgICAgICAgICAgICAgICAgICAgICAgICAgICAgICAgIC AgICANCjw/jROwF7wceFItnhU8W1drOf5WJk0MNX5pq0XnBLAjYVmpvhZoNyrWYlYrCTWyTvqJLwu3MZ oqQP2CeDWcA1PvJ5ElSSitTM9UNKYpJRMorLIxDULd QZWxYbG8RLAhSRetIY7AaMZsPJevTPUfZDMtLfNpOXRcUBDyXQRxAI8YQBDpY479yoSyLl2AIz1HHkPj XC7fld6MIjLfKARrGhqEZyd0SLpoYX4YqWJhlLPwOpYwZNCMFrTzF1nfj4AwMeelOUSCUSpzEA0Cy3On dCAxDQo+Pb5VZN7pk6UlYOflYwVaLC0pfb1NHKoTDn DbN5WxrQruYAQck7abZFVkIX3orZPeMHK7IKgqUALtbsWEXF4oEKUAEIKcfDZxED8mCp9dVCPsUFQyQj OyRPVRPV8BQDCrBZGsuAEbZHPqECMOIF2JVUycGBO4YRWrkcIjkOWzHZnoFN9ABWGtrdPwLuVzLDRQIT o+Dd9OLQ8mh6UqFWhvVUOuVH4mqy3DYFhREzTxR3G0 eBRyZ9N3KOuzXm2TVPIgJRKbGgLxWUTNVXyjBN8AXY0qljP5GZ3EmEPqHHYxQLOacFRaGSj2W72ibZLw FHhfJB3AZCD+Lisa+Dh4NGEOgNAHgFDSqAuWvWVROSoUnA3AgG9BNi5SuS2FiGY31aHwzjeDcYCpiUF7D UH1xJHDsOHPJOX7QxBAsbF2wyePqEuYtDAAFAdRhM2 8tdPSuKUSiWVN5GYOeMj2AQYPzI6XanpNjyUoyntEhGNFmKVLWXI7YCBkafgMzwAWodIfhGA97yIyqOZ 6SGq8EFxDwHC3zyb5WbOQoEf0QSOXcWK5CDKQjQCLrNOIdYJL7YLJoNeBoCJcnFMQnEZFrVHX1SHBbRW PbAO8MZtDfSLChYOY0LQXcZBZbIVUsqf7GJDZkRDC9 HrN6FbZpXXTgDDJyOPogRNQnEKHsQHE0EWMaEJGyAC1LNjExAEQvPKFnCsfoJCYmMQBcsj8GZHGnXNJp LXB1IPIsVHAlTIRgBIwsHSHpLQK1YpolWEGbATEaRG1TOrDyXXPqVWg8YUJsZVTmPMTvym6SOVUdBLUi IyZ0KNKsVTNbEECoJQjjIUDgNLTbQbB0LKYcSRQlKC 0HAhMdONToCTK0YHhmMZZqLXBdah5JQEKmXDZcQygxPrBiOYCzDBOqZZglHNLsBTAtZXm4EZOyIEKvUD 9YUzKqMQWlCSE4CSfzQWKkEPFnob0YKOAvDLJcSNV7YOBhQYXcGMIkMSjcMURfNHW9ZnC7VBNnKRPgJT 7UNjWbDVYbZKm1HBVhELXzHSMxgx8XBTZjBHL5ZBN2 XbGbIIQyRKMhJSzoMUCpOKW8BZW8GXPpHVVsMP9PAgHcEOLbACAnBaIoAYCgPHYfbk1QJXQoCHP3KMWk BUGyQWMvBTGtSUylFQFjTNJcAQK3OICvFMDiJL3SDiIoSXSxAKM1TSFnGBKsZJTfdn6PICYvJHB6YFuq AOJjOCLwHLDrZFeoPQRsIEPjElD0AIWzQALxOC1AKq BqWCUeECV7KQacWXYiGHJgtd5CBDBnIIW6Ofz7FPJwEHLySCRjNYiqMYKjBVQsATY3BDDtWDBbRX9DEp SfBHqbACWCCut9MJgvD4g6VCBlKF7HW1Xrz9InFfoqRUOWBLswIB4ysmYnLOPxZt9NU8oVYpcjPzW6YL qfQpM5BhG9GhZ0CIF2PNDhSUqaLaD5MBL3Bt1oEURp QvmjPMVeMKfdTKlvAxp9BnCvStZ9LUQfJYFoGSedNcLiJL2NMt1WCvS9CLJ3dHSsLv5URFWfTUnEJdQs AU4BZUd= Procedure Social History Code Duration Value Status Description Data Source(s ) Alcohol intake 02/06/2021 12:00:00 AM EDT Current non-d stalin of alcohol (finding) completed Current non-drinker of alcohol (finding) [facility] Tobacco use and exposure 02/06/2021 12:00:00 AM EDT Never used co mpleted Never used [facility] Cigarettes smoked current (pack per day) - Reported 02/07/20 12:00:00 AM EDT UNK completed [facility] Smoking 02/06/2021 12:00:00 AM EDT Never smoker completed Never s moker [facility] Alcohol intake 01/24/2021 12:00:00 AM EDT Current non-d stalin of alcohol (finding) completed Current non-drinker of alcohol (finding) [facility] Alcohol intake 10/19/2020 12:00:00 AM EST Current non-d stalin of alcohol (finding) completed Current non-drinker of alcohol (finding) [facility] Smoking 08/25/2020 12:00:00 AM EST - [birth year]/1983 12:00:00 AM EST Patient is a former smoker completed Patient is a former smoker [facility] Alcohol intake 08/07/2020 12:00:00 AM EST Current non-d stalin of alcohol (finding) completed Current non-drinker of alcohol (finding) [facility] Vital Signs ID Date Data Source UNK Name Value Range Interpretation Code Description Data Source(s) Body temperature 96.9 [degF] 96.9 [degF] [facility] Systolic blood pressure 117 mm[Hg] 117 mm[Hg] [facility] Diastolic blood pressure 80 mm[Hg] 80 mm[Hg] [facility] Respiratory rate 18 /min 18 /min [facility] ( [facility] Heart rate 82 /min 82 /min [facility] Body height 63 [in_i] 63 [in_i] [facility] 5'3" W/C bound Oxygen saturation in Arterial blood by Pulse oximetry 98 % 98 % [facility] [place] body weight 115 [lb_av] 115 [lb_av] [facility] ([facility] ID Date Data Source [id number] 02/06/2021 02:43:34 PM [facility] Name Value Range Interpretation Code Description Data Source(s) PREFERRED NAME [facility] ID Date Data Source [id number] 04/23/2021 03:49:32 PM [facility] Name Value Range Interpretation Code Description Data Source(s) PREFERRED NAME [facility] ID Date Data Source [id number] 02/06/2021 08:50:18 AM [facility] Value Range Interpretation Code Description Data Source(s) WEIGHT RECORDED 150 lb 150 lb [facility] Body height Measured 62.99 in 62.99 in [facility] PREFERRED NAME [facility] ID Date Data Source [id number] 02/09/2021 02:55:51 PM [facility] Name Value Range Interpretation Code Description Data Source(s) WEIGHT RECORDED 151 lb 151 lb [facility] Body height Measured 63 in 63 in [facility] PREFERRED NAME [facility] ID Date Data Source [id number] 01/02/2021 02:21:42 PM [facility] Name Value Range Interpretation Code Description Data Source(s) WEIGHT RECORDED 151 lb 151 lb [facility] Body height Measured 63 in 63 in [facility] ID Date Data Source [id number] 05/24/2020 09:54:44 AM [facility] Name Value Range Interpretation Code Description Data Source(s) WEIGHT RECORDED 151 lb 151 lb [facility] Body height Measured 63 in 63 in [facility] Patient Treatment Plan of Care Planned Activity Planned Date Details Description Data Source (s) BD Catheter Tip Syringe 60 ML (Catheter Syringes) 01/29/2021 12: 00:00 AM [facility] sodium chloride (preservative free) 0.9 % flush 10 mL 01/24/2021 03:30:00 PM EDT [facility] onabotulinumtoxinA 100 UNT/ML Injectable Solution 01/24/2021 03: 30:00 PM [facility] Gentamicin Sulfate 40 MG/ML Injection Solution (GARAMY FELICITA) 01/23/2021 12:00:00 [facility] sodium chloride (preservative free) 0.9 % flush 10 mL 10/19/2020 05:00:00 PM [facility] onabotulinumtoxinA 100 UNT/ML Injectable Solution 10/19/2020 05: 00:00 PM [facility] Sodium Chloride 0.154 MEQ/ML Irrigation Solution 09/29/2020 12:00:0 0 AM [facility] methenamine hippurate 1000 MG Oral Tablet 09/13/2020 12:00:00 AM [facility] 24 HR trospium chloride 60 MG Extended Release Oral Ca psule 08/28/2020 12:00:00 AM [facility] calcipotriene 0.05 MG/ML Topical Cream 08/26/2020 12:00:00 AM [facility] Fluticasone Propionate 50 MCG/ACT Nasal Suspension (FL ONASE) 07/02/2020 12:00:00 AM [facility] Azelastine HCl 0.1 % Nasal Solution (ASTELIN) 07/02/2020 12:00:00 A M [facility] gabapentin 300 MG Oral Capsule 04/06/2020 12:00:00 AM [facility]
--- OUTSIDE RECORDS SUMMARY | 2021-07-22 01:40 | CCD | Continuity of Care Document ---
Author Author Chirsty GUERRERO M.D. Organization Unknown Address [address] [place] [id number] Phone [phone] Care Team Providers Care Hot Packer Name Role Phone Ana Paula Figueroa M.D. AUTM [phone] Problems Active Problems Provider Date Obstructive sleep [...] lb BMI (Body Mass Index) 27.4 kg/m2 [place] Body Weight 110 lb Results Description No Information Available Procedures Date Code Description Status 07/17/2021 46751 Office/Outpatient Established Mo d MDM 30-39 Min Completed Medical Devices Description No Information Available Encounters Type Date Location Provider Dx Diagnosis Office Visit 07/17/2021 2:30p Main office - [place] G47.33 Obstructive sleep apnea (adult) [...] Kar Guerrero M.D. at Main office - [place] Functional Status Description No Information Available Mental Status Description No Information Available Referrals Description No Information Available
[2021-07-22 02:12] LABS: BASO % 0.4 % (0.0-1.0); EOS # 0.2 10^3/uL (0.0-0.5); EOS % 2.1 % (0.0-3.0); HEMATOCRIT 43.8 % (36.0-47.0); HEMOGLOBIN 13.9 g/dl (12.0-15.5); LYMPH # 1.4 10^3/uL (1.5-5.0); LYMPH % 19.3 % (24.0-44.0); MEAN CORPUSCULAR HGB CONC 31.7 g/dl (32.0-36.5); MEAN CORPUSCULAR VOLUME 91.4 fl (80.0-96.0); MONO # 0.6 10^3/uL (0.0-0.8); NEUTROPHILS # 5.1 10^3/uL (1.5-8.5); NEUTROPHILS % 70.1 % (36.0-66.0); PLATELET COUNT, AUTOMATED 313 10^3/uL (150-450); RED BLOOD COUNT 4.79 10^6/uL (4.00-5.40); WHITE BLOOD COUNT 7.3 10^3/uL (4.0-10.0)
[2021-07-22] MEDS ORDERED: MORPHINE 4 MG/ML 1ML VIAL/SYRINGE (J2270) IV ONE (02:40)
[2021-07-22] MEDS ORDERED: ONDANSETRON 4 MG TAB PO ONE (02:50)
[2021-07-22] MEDS ORDERED: ONDANSETRON 4MG/2ML VIAL IV ONE (02:55)
--- OUTSIDE RECORDS SUMMARY | 2021-07-22 03:11 | CCD ---
Author Author [facility] Organization [facility] Address Unknown Phone Unavailable Care Team Providers Care Pad Cutter Name Role Phone Kar Guerrero MD Unavailable [...] Unavailable Henrique Nguyenitrityshawn GUEVARA Unavailable Unavailable Henrique Nguyneitrityshawn GUEVARA Unavailable Unavailable Henrique Nguyenitrityshawn GUEVARA Unavailable Unavailable Henrique Nguyenitriy Unavailable Unavailable Henrique Nguyenitriy Unavailable Unavailable Henrique Nguyenitriy Unavailable Unavailable Henrique Nguyenitrityshawn GUEVARA Unavailable Unavailable Henrique Nguyenitrityshawn GUEVARA Unavailable Unavailable Henrique Nguyenitriy Unavailable Unavailable ChriskyHenriqueAnanda Unavailable Unavailable Jose LolamargaritokyHenriqueAnanda Unavailable Unavailable Henrique Nguyenitriy Unavailable Unavailable Henrique Nguyenitriy Unavailable Unavailable Henrique Nguyenitriy Unavailable Unavailable oJse LolamargaritokyHenriqueAnanda Unavailable Unavailable Jose LolamargaritokyHenriqueAnanda Unavailable Unavailable [...] Unavailable Unavailable Robert Solomon Unavailable Pleskach, Kita CO TEACHER Unavailable Unavailable Pleskach, Kita [employer] TEACHER Unavailable Unavailable Pleskach, Kita CO TEACHER Unavailable Unavailable Pleskach, Kita CO TEACHER Unavailable Unavailable Pleskach, Kita CO TEACHER Unavailable Unavailable Pleskach, Kita CO TEACHER Unavailable Unavailable Pleskach, Kita CO TEACHER Unavailable Unavailable Pleskach, Kita CO TEACHER Unavailable Unavailable Pleskach, Kita CO TEACHER Unavailable Unavailable Pleskach, Kita CO TEACHER Unavailable Unavailable Pleskach, Kita CO TEACHER Unavailable Unavailable Pleskach, Kita CO TEACHER Unavailable Unavailable Pleskach, Kita CO TEACHER Unavailable Unavailable Pleskach, Kita CO TEACHER Unavailable Unavailable Pleskach, Kita CO TEACHER Unavailable Unavailable Pleskach, Kita CO TEACHER Unavailable Unavailable Pleskach, Kita CO TEACHER Unavailable Unavailable Pleskach, Kita CO TEACHER Unavailable Unavailable Pleskach, Kita CO TEACHER Unavailable Unavailable Pleskach, Kita CO TEACHER Unavailable Unavailable Pleskach, Kita CO TEACHER Unavailable Unavailable Pleskach, Kita CO TEACHER Unavailable Unavailable Pleskach, Kita CO TEACHER Unavailable Unavailable Pleskach, Kita CO TEACHER Unavailable Unavailable Pleskach, Kita CO TEACHER Unavailable Unavailable Pleskach, Kita CO TEACHER Unavailable Unavailable Pleskach, Kita CO TEACHER Unavailable Unavailable Pleskach, Kita CO TEACHER Unavailable Unavailable Pleskach, Kita CO TEACHER Unavailable Unavailable Pleskach, Kita CO TEACHER Unavailable Unavailable Pleskach, Kita CO TEACHER Unavailable Unavailable Pleskach, Kita CO TEACHER Unavailable Unavailable Pleskach, Kita CO TEACHER Unavailable Unavailable Pleskach, Kita CO TEACHER Unavailable Unavailable Pleskach, Kita CO TEACHER Unavailable Unavailable Pleskach, Kita CO TEACHER Unavailable Unavailable Pleskach, Kita CO TEACHER Unavailable Unavailable Pleskach, Kita CO TEACHER Unavailable Unavailable Pleskach, Kita CO TEACHER Unavailable Unavailable Pleskach, Kita CO TEACHER Unavailable Unavailable Pleskach, Kita CO TEACHER Unavailable Unavailable Pleskach, Kita CO TEACHER Unavailable Unavailable Pleskach, Kita CO TEACHER Unavailable Unavailable Pleskach, Kita CO TEACHER Unavailable Unavailable Quiñonez, T Mily GUEVARA Unavailable [...] is protected by Article 27-F of the [facility] Public Health law. If you continue you may have access to information: Regarding HIV / AIDS; Provided by facilities licensed or operated by the [facility] Office of Mental Health; or Provided by the [facility] Office for People With Developmental Disabilities. If such information is present, then the following [facility] mandated warning applies: This information has been [...] law may result in a fine or mcfp sentence or both. A general authorization for the release of medical or other information is NOT sufficient authorization for further disc losure. Family History Family Member Name Family Member Gender Family Member Status Date o f Status Description Data Source(s) Unknown Unknown Problem [facility] ([facility] Unknown Unknown Problem [facility] ([facility], ) Encounters Encounter Providers Location Date Indications Data Source(s ) Outpatient Attender: Mily Quiñonez MD 09/19/2021 12:00:00 AM [facility] Outpatient Attender: Ananda Nguyen MD 08/13/2021 12:0 0:00 AM [facility] Outpatient Attender: Ananda Nguyen MD 07/30/2021 12:0 0:00 AM [facility] Outpatient Attender: Kar Guerrero MD Main office [facility] 07/17/2021 02:30:00 PM EDT [facility] ([facility], ) Outpatient Attender: GENIE MURILLO V 2021 12:00 :00 AM [facility] Outpatient Attender: Mily Quiñonez MD 06/04/2021 12:00:00 AM [facility] Outpatient Attender: Amie SolomonAttender: AMIE SOLOMON 06/01/2021 12:00:00 AM [facility] Outpatient Attender: Mily Quiñonez MD 04/26/2021 12:00:00 AM [facility] Outpatient Attender: Mily Quiñonez MD 02/15/2021 12:00:00 AM [facility] Outpatient Attender: Ananda Nguyen MD [id number] 02/06/2021 12:00:00 AM EDT Urinary tract infection, site not specified [facility] Urinary tract infection, site not specif ied Outpatient Attender: Mily GuzmanA-PMART5 01/24 12:00:00 AM EDT - 01/24/2021 03:37:19 PM EDT Paraplegia, incomplete [facility] Paraplegia, incomplete Outpatient Attender: Ananda Nguyen MD 01/23/2021 12:0 0:00 AM EDT [facility] Outpatient Attender: Mily Quiñonez MD [id number] 10/19 12:00:00 AM EST - 10/19/2020 11:36:27 AM EST Cramp and spasm [facility] Cramp and spasm Outpatient Attender: Mily Quiñonez MD 09/28/2020 12:00:00 AM EST [facility] Outpatient Attender: Kita Harper [facility] Main Office 08/25/2020 0 7:30:00 AM EST [facility] ([facility] Outpatient Attender: Mily Quiñonez MD [id number] 08/07/2020 12: 00:00 AM EST Paraplegia, incomplete [facility] Paraplegia, incomplete Outpatient Attender: Mily Quiñonez MD [id number] 05/18 12:00:00 AM EDT - 05/18/2020 01:34:16 PM EDT Paraplegia, [facility] Paraplegia, incomplete Medications Medication Brand Name Start Date Product Form Dose Route Admi nistrative Instructions Pharmacy Instructions Status Indications Reaction Description Data Source(s) BD Catheter Tip Syringe 60 ML (Catheter Syringes) [id number] [id number] 01/29/2021 12:00:00 AM EDT active History of recur rent UTIs Use as directed. USE DIRECTED TO IRRIGATE BLADDER WITH SALINE AND GENTAMICIN [facility] History of recurrent UTIs onabotulinumtoxinA 100 UNT/ML Injectable Solution onabotulinumtoxin type A (BOTOX) injection 500 Units onabotulinumtoxin type A (BOTOX) injecti on 500 Units 01/24/2021 03:30:00 PM EDT 500 U Intramuscular completed Chronic incomplete spastic paraplegia 500 Units, Intramuscular , Once RT, On Fri01/24/21 at 1530, For 1 dose [facility] Chronic incomplete spastic paraplegia Medication administered onsite sodium chloride (preservative free) 0.9 % flush 10 mL 01/24/2021 03:30:00 PM EDT 10 mL Intramuscular completed Chroni c incomplete spastic paraplegia 10 mL, Intramuscular, Once, On Wed at 1530, For 1 dose [facility] Chronic incomplete spastic paraplegia Medication administered onsite Gentamicin Sulfate 40 MG/ML Injection Solution (GARAMYCIN) 6 3323-010-02 01/23/2021 12:00:00 AM EDT active Histo ry of recurrent UTIs DRAW 3.1 ML OF GENTAMICIN. INJECT INTO 250 ML OF NORMAL SALINE. REFRIGERATE, GOOD FOR TEN DAYS. ADMINISTER INTO BLADDER. [facility] History of recurrent UTIs sodium chloride (preservative free) 0.9 % flush 10 mL 10/19/2020 05:00:00 PM EST 10 mL Intramuscular completed Chroni c incomplete spastic paraplegia 10 mL, Intramuscular, Once, [place] 10/19/20 a t 1700, For 1 dose [facility] Chronic incomplete spastic paraplegia Medication administered onsite onabotulinumtoxinA 100 UNT/ML Injectable Solution onabotulinumtoxin type A (BOTOX) injection 500 Units onabotulinumtoxin type A (BOTOX) injecti on 500 Units 10/19/2020 05:00:00 PM EST 500 U Intramuscular completed Chronic incomplete spastic paraplegia 500 Units, Intramuscular , Once RT, [place] 10/19/20 at 1700, For 1 dose [facility] Chronic incomplete spastic paraplegia Medication administered onsite Sodium Chloride 0.154 MEQ/ML Irrigation Solution Sodium Chloride 0.9 % Irrigation Solution Sodium Chloride 0.9 % Irrigation Solution 09/29/2020 12:00:00 AM EST active History of recur rent UTIs USE TO MIX WITH GENTAMICIN FOR BLADDER INSTILLATION [facility] History of recurrent UTIs methenamine hippurate 1000 MG Oral Table t Methenamine Hippurate 1 GM Oral Tablet (HIPREX) Methenamine Hippurate 1 GM Oral Tablet (HIPREX) 2019 12:00:00 AM EST 1 g Oral active Neurogenic bladder Take 1 tablet by mouth Two times daily with meals [facility] Neurogenic bladder 24 HR trospium chloride 60 MG Extended R elease Oral Capsule Trospium Chloride ER 60 MG Oral Capsule Extended Release 24 Hour Trospium Chloride ER 60 MG Oral Capsule Extended Release 24 Hour 08/28/2020 12:00:00 AM EST active TAKE 1 CAPSULE DAILY [facility] pantoprazole 40 MG Delayed Release Oral Tablet Pantoprazole Sodium 08/28/2020 12:00:00 AM EST active M [facility] ([facility] calcipotriene 0.05 MG/ML Topical Cream C alcipotriene 0.005 % External Cream (DOVONOX) Calcipotriene 0.005 % External Cream (DOVONOX) 020 12:00:00 AM EST active [facility] Prednisone 20 MG Oral Tablet Prednisone 08/25/2020 12:00:00 AM EST ORAL active [facility] ([facility] 60 ACTUAT Albuterol 0.09 MG/ACTUAT Metered Dose Inhaler Albu terol Sulfate HFA 08/25/2020 12:00:00 AM EST ORAL active [facility] ([facility] Fluticasone Propionate 50 MCG/ACT Nasal Suspension (FLONASE) [id number] 07/02/2020 12:00:00 AM EDT [facility] Azelastine HCl 0.1 % Nasal Solution (ASTELIN) [address]-3 07/02/2020 12:00:00 AM EDT [facility] Dexamethasone 1 MG/ML Ophthalmic Solution Dexamethasone Sodi [...] mg Oral active Take 1 capsule by [facility] Two Times Daily [facility] Insurance Providers Payer name Policy type / Coverage type Policy ID Covered libertarian ID Covered libertarian's relationship to antunez Policy Antunez Plan Information [place] P[place] 302/307 [id number] SP [id number] [facility] [id number] Self [id number] [place] P[place] 302/307 [id number] SP [id number] EXCELLUS H [id number] Self [id number] EXCELLUS H [id number] Self [id number] [place] PPO 302/307 [id number] SP [id number] BS Of [facility] ([facility] [id number] Self T [id number] BS Of [facility] ([facility]) [id number] Self EXCELLUS BC-BS PPO [id number] SP [id number] EXCELLUS BCBS P [id number] S TNY [id number] [place] [id number] [place] [id number] S [id number] BLUE [place] CNY 1 [id number] [place] [id number] SELFPAY 5 UNAVAILABLE 1 UNAVAILA BLE [place] PPO 302/307 [id number] SP [id number] SELF PAY 5 UNAVAILABLE 1 UNAVAILA BLE [place] PPO 302/307 [id number] SP [id number] BS Of [facility] ([facility]) TNY2 [id number] Self T [id number] BS Of [facility] ([facility]) TNY2 [id number] Self T [id number] EXCELLUS BCBS B [id number] S TNY [id number] [facility] Maintenance Organization ([facility]) TNY2 [id number] Self T [id number] [facility] ([facility]) [id number] Self T [id number] Problems, Conditions, and Diagnoses Code Display Name Description Problem Type Effective Dates Data Source(s) N39.0 Urinary tract infection, site not specif ied Urinary tract infection, site not specified Diagnosis 02/06/2021 07:47:[address] [facility] G43.009 Migraine without aura, not refractory Mi graine without aura, not refractory Problem 07/17/2021 12:00:00 AM EDT [facility], ) Surgeries/Procedures Procedure Description Date Indications Data Source(s) OFFICE OUTPATIENT VISIT 25 MINUTES 07/17/2021 12:00:00 AM EDT [facility] ([facility], ) Results ID Date Data Source [id number] 02/06/2021 08:26:[address] [facility] Name Value Range Interpretation Code Description Data Linda rce(s) Supporting Document(s) Progress Note [facility] SRMUDc6lAoLGUsJj91/KSNpqSQCyh9OoHUhwBZm7MGwwTICkD1ObXXV2vM1qUNL0QCxNVbDpMcMcRXS5 [facility] [file] AgICAgICAgICAgICAgICAgICAgICAgICAgICAgICAgICAgICAgICAgICAgICAgICAgICAgICAgICAgIC OkLWIyEIPoYLEfHGWeLSYrQOYdUBToRZ9LWWReKNOp ICAgICAgICAgICAgICAgICAgICAgICAgICAgICAgICAgICAgICAgICAgICAgICAgICAgICAgICAgICAg TZMuIOMbETNxORYpFYWzUEPcPNIjCHFxSHIxYICvBNEeMZ0WXULsFYKnBNOrRSDbWVHjWPUsUPHbPBAt ICAgICAgICAgICAgICAgICAgICAgICAgICAgICAgIC IbMWFfVRSpPVBvAAIjRGXfALBuBOOtEIZyWHOxYZKwUJQbSYNnXIFmQLBgZN3WDIBkWOUgSCXgTAVkKO AgICAgICAgICAgICAgICAgICAgICAgICAgICAgICAgICAgICAgICAgICAgICAgICAgICAgICAgICAgIC ZiWHSoCUSvRNHtJUQaZIXtMBHnQRVwOODyXO9JMLIj ICAgICAgICAgICAgICAgICAgICAgICAgICAgICAgICAgICAgICAgICAgICAgICAgICAgICAgICAgICAg CQWcHFOaSXUhNBEnVTYiFLPgLCEuRKHpXXIdZWBmCCFnOXVeYL4SRYKnRRDcQYPjJIVmOIXzDLRlLSBp ICAgICAgICAgICAgICAgICAgICAgICAgICAgICAgIC MrYBXaEOHsPGDkZHGdOQRsRQAfXOLfOOEnJGEyKRRaEJZaHQSxKOFnNLQaWCMbIT3RNRRtNLWvSYUlLJ AgICAgICAgICAgICAgICAgICAgICAgICAgICAgICAgICAgICAgICAgICAgICAgICAgICAgICAgICAgIC NuCHLoVDQaHYTjNVRvUTGoMHPdLHSqBSBbNGLjCN7Q ICAgICAgICAgICAgICAgICAgICAgICAgICAgICAgICAgICAgICAgICAgICAgICAgICAgICAgICAgICAg JCNyKLXrPTPrWQNaTIWrXRRbFHZdDDLuUTMtGEGwSFHuRKPcMDAgKG6GNRPfWKObNTVsVBIeDDWoHIQq ICAgICAgICAgICAgICAgICAgICAgICAgICAgICAgIC SjWBCaEEJbBUAsGYMcQFQtZDAeMPMoLZAqPZOgSBEvXKHvLEYiPNYxUQUrDDZtXPKcOU7MRSVcSXRsDR AgICAgICAgICAgICAgICAgICAgICAgICAgICAgICAgICAgICAgICAgICAgICAgICAgICAgICAgICAgIC AgICAgICAgICAgICAgICAgICAgICAgICAgICAgICAg IH1RSE07xNSgh7Z4WLIeKF6agfb/Yg0ERFyvlfNtlIQyWA1DTyKrIK0mfq7EDcKdGQ3got0JLFuMJfUa O1C5pUSmQUVfGMEQJhCcL64vDIldSn39XQhlZFEwEjWwQJm8Xe2PIbNhA5uqVQYjOqT9CHTfBmL7YKNt AoE5OAQwAgWfNWSwTLYcJD0BUYIgD240rySnAY6IJb 2ZAcGjLO1zvr2JZjlrOTKaClfMJkk1JSlcCJ9XvALpmCNjISExYLXZYqOiF8gpd4ZvLgzkDMQMGPiqPV 5Wg3EyjEGgTVd+Gu0WZX9qx4ZxGScwGMSgSU6cts3TPKyWHkXxA3AbaQjvMSEdp7jzJIHcCY1vtCYgIG Z1MXGqhRYjpLbxGyurb7oqjzSnuHhkISOqDZDzVD3r ZK4rVIOqMDI3EyIfHQUJOD3MWPUmEYGjaTNfQGAmIZLBRI2STAchEDB2MCRzuyTtfJApMBvzDK8FCBUp bnQgMjggMCBSDQo+Vq7SIL5bs2WfHHcgZGDrPB8gar7KNOmVBaTbF1Z8gNEtS6B0UIfsYb6CUGFwTJFv EsYwWZIXJOkkDN5ABH0oooQ9MA7SuTDvYVNzHUVxuA EiRCh6N93goYIaJBbzSV9UAVC+Lisa+Uh0GQDBsLAAfBMKlHzLsHLYGQbJrV2CcQ3OZw5YhH9XsMU18mW xgtaFmVQotRN9EMM3aDKMbQJAUWS3CiFBiaU2whdXtWLGrYRNZCjVkU47kcKWoMPPbKVS5PTDlBn3XWO ZfV0DfibOyuKixbgJrKJDfDESJMD5ZUJrwsxAwySEd vRcuMD50nIntDX5JUl6ZMiZqOY3nds9VwWLqLh6KREOgWP8MYJVgIKGtTNNjFZZ4ZWZxNsYiKYdyEVPm EIYgZVV4YBQyXNTwSN5POdBbWEDbTlq1YHZjYKMcOTHcga8RYBPpXPEuZGB3CVBjIIEbRJGxTXycKKRk SCJaEMO8KNFtLWLaJG1ZKwSqZADtZFR6AVXcXJNiDL Xyns8FZAHjKZWvKHI0PANxNHTyRQOrCNcxHIKuHCO7ZBGjDGBaTJDhDJ5YFoEeBASfARk2KPBxGQVxJP Ixvb3LVETyWXBtPTq2NDXfABNtCQMwFVqqOKViBXMkYNpzMHNfENJmJZ6VAvOiIXGxEPBdLrYsZSJtYW Eegs4OIPIvYJPdUrYoHIWvSUQzZZSgCQhfVKQrGHPi GGqvDWYdBVNlXD3AKoJaKZWkVFS2PZpaAOEnAKAipw8IXNFuASEwLfl1JDJwMUKeHLPnAGrtJFGkNWD1 BQE4OBGiDVSaBF5OPbSzTPZgVBNcFrDiPGLnXCSxkj2QNGNbCBIfIRFgWXKlXKTqZXHbUBdfMAWlNGZ8 ZaF4HRXpUDGbLY3KMiWjJSZgJbD9WqPjBVXpXJIgpl 1CZLOhFONaEsS7CeBqBROiFPAhFCklDHMyTKY3SEUmKXQsGRIrKB8SArQeTGXjVtp1BkwmPXFnWJWqga 3ZQKUaPNVnGVDxJhSbGNMiRGHqRMtzJKPvUMT8JmWeDHVyJOGgAI8LPtSyWXQrArq6PUCnXXFkCHSeur 5DZIAdEQKbXKItAXUzJSCxYMVkAKphKUAuWINxLcI4 EEPlMGGbGA3KWgQgNQNcIwY7VqMjANTsYUEjha3KZMMtNCAnFPq0ZKGbJOLwGNVbVCe4eiKydTNvFHu0 FE9GP7MjbgYfYwLQWb9Ll977BCRwGGDcVt2VM6nrVb0pSVHaAILXDa9AOOb5XIWrPTe3VMCaQ4T1NrA6 DKHrBMI0VLMwCBG3KREiIEn+DLgrYKP9KWOxEhF7Qm GoSLX1NGGhCiO0C3C1GKOoDSJtVy5eAXARUy0+TAufqWKmeHndVDSAIfAtEhDgZPkbNYVQWy8F ID Date Data Source [id number] 01/24/2021 03:25:[address] [facility] Name Value Range Interpretation Code Description Data Linda rce(s) Supporting Document(s) Progress Note [facility] YFLOXd3nDpLTTvLg06/HGVooQUNsm3OwUKjqBWx3UPzvUBIqM7PbOCS7zU9cKGO0SUtHBhLqRvNsUMLu lbm [file] GUqTwIkDNFsoaLi/neiCMYQbcwRd2yvUdNvenEa+jose enrique [file] AgICAgICAgICAgICAgICAgICAgICAgICAgICAgICAg ICAgICAgICAgICAgICAgICAgICAgICAgICAgICAgICAgICAgICAgICANCiAgICAgICAgICAgICAgICAg ICAgICAgICAgICAgICAgICAgICAgICAgICAgICAgICAgICAgICAgICAgICAgICAgICAgICAgICAgICAg ICAgICAgICAgICAgICAgICAgICAgICANCiAgICAgIC AgICAgICAgICAgICAgICAgICAgICAgICAgICAgICAgICAgICAgICAgICAgICAgICAgICAgICAgICAgIC AgICAgICAgICAgICAgICAgICAgICAgICAgICAgICAgICANCiAgICAgICAgICAgICAgICAgICAgICAgIC AgICAgICAgICAgICAgICAgICAgICAgICAgICAgICAg ICAgICAgICAgICAgICAgICAgICAgICAgICAgICAgICAgICAgICAgICAgICANCiAgICAgICAgICAgICAg ICAgICAgICAgICAgICAgICAgICAgICAgICAgICAgICAgICAgICAgICAgICAgICAgICAgICAgICAgICAg ICAgICAgICAgICAgICAgICAgICAgICAgICANCiAgIC AgICAgICAgICAgICAgICAgICAgICAgICAgICAgICAgICAgICAgICAgICAgICAgICAgICAgICAgICAgIC AgICAgICAgICAgICAgICAgICAgICAgICAgICAgICAgICAgICANCiAgICAgICAgICAgICAgICAgICAgIC AgICAgICAgICAgICAgICAgICAgICAgICAgICAgICAg ICAgICAgICAgICAgICAgICAgICAgICAgICAgICAgICAgICAgICAgICAgICAgICANCiAgICAgICAgICAg ICAgICAgICAgICAgICAgICAgICAgICAgICAgICAgICAgICAgICAgICAgICAgICAgICAgICAgICAgICAg ICAgICAgICAgICAgICAgICAgICAgICAgICAgICANCi AgICAgICAgICAgICAgICAgICAgICAgICAgICAgICAgICAgICAgICAgICAgICAgICAgICAgICAgICAgIC AgICAgICAgICAgICAgICAgICAgICAgICAgICAgICAgICAgICAgICANCiAgICAgICAgICAgICAgICAgIC AgICAgICAgICAgICAgICAgICAgICAgICAgICAgICAg ICAgICAgICAgICAgICAgICAgICAgICAgICAgICAgICAgICAgICAgICAgICAgICAgICANCjw/fOZgL9tn ySFnzcT4R4ngIs9BDi8LRV7ie9VvLPRiXJcvraSsSltEJnOtEKZcIrqPKdt1UEhpPY8SbXCyU1RjM7Ya ZSunFE3IMJWbRXEuzIUnBJFbFJZoPbF1CQErQBmhDF 3IhVZtMPtpWFGrDOUnYyUhPUPbZEAdENItOUDoLXWGYI3JTuQvU9OwuM24YEFLNu9+DQplbmRvYmoNCj C5GDDxr0FwGEv4BM1DHXDuKknvi2EmEgzjNDCUXBpuPG2OUQA9LSF6TOTvLu1TWKBtJ561yySzGK3IRo 3XJnQkHO1lfb1LHhbbEMOsNgjIPxu2VQotVX8NjIVe GBuXef8wqiCdmrSLd0GnrnQkzYRMyGQ5KAttWMOXUKqxcqGpMR6WTMM5UJBtVMIjCxUvFRLfPxhdBNRU TQsTTnDrP2Dnr1PoOxW5RLCbKiOiZNrtBLVaAvF3NY23jVmbVO5VNDTkNTKqTB87TWE1QOQvPj2NWh1D KoPaEX3evh3RNvGaMOAsRksPTzf6BZjoSM6EzYXaK6 WudAZrt7mECqLzL2ICKHJ0FSNuIk6IRXGgTyAkZVXcEDmpMS6uKGIwJMCUwOgqqtH3IV8GLN0uccKxKN 0ZAyLmQo4wIs1YFiXnM7RzF9ZxDXVyYCCLEOjnLN4QOAwnNE9lOQ8Pe6FSlROhhB8opz3ZJUBnFVGyGz usjr6ARqjkA0A6dZnuYTTdGguiVYCLGFpmZF4FIUDn MDG2ZGWoKnJdHXVWWpZyV15bAJ7IZ1Aqn19gEeH9TOWmRqJyEAwbSZ45qCnqwsWxcNVswCboTC6ZMy3+ TZucijOeBcsTZqpgHZFVOoCyYkOLIcFpOVYtABEhVKYhDbW1OmTjAs6ZJZIfAKRtGSQrQrFiGLDcPEBx PLjiNYDvWCV6RyM8BKHhOKWyUI6XTxPxXJFnPRX6KF CeRHJbBHExqb6SBHOrNQSsCFX0UtTuZGXoDIDrNXotOKQsNFDoXnMxSNIaEMQfTU4GDwLoQHDdMEN8IS HnHFBvEZZhou2KLXDlRJMeQNY0FWHuXZElWPEwPBwiMCJzAVK5PBy1VGJkNEKfSF1YRiGfLHEhCZWuKc OeMASnLXKpyc1PDLQmVAFbAuI5JTLdWLMaJJGaELjf UUSkZCK6WrJjAVNkEIKsSE1GQaNbJVQoFRM5ZUFwXDGmEQFniv4PNBOiLDLlWKm7ObBxBUOeRUZdPLlw KDEgLOM7ANrjFPWaPBDnAZ6CZwPrDBXuCEZhJQEyBUBdVRKfnr0MBOXuGOQuYgLgDQAdHRXgUMJiTDsr MUQzXJB3OCT4FKZeNCNaRW8WAmJiDBFjSTy3GVAzGA MoORMwsi1PAZUkEPM8IUU1ZTSmXLSxKEVuGTzvHCSuFHUrMYExUJNzSNPgKU3JTgPgDYPjAWTpTZWvRW LvINRzqy2AAVTgHLW5IuHfPCUiJZTcHIPhBOdtGQAvVZVzAit2UDUcZNVkRF5WOrRzAJDbPOXuZasgER YtMTWwjg9TCEWyMYX2LPGtCbXaJMGwVIImPPnaBPGo NDS0Syj4CRWcCWPhHO2RPoGiWWGuQHSbTKPsKCFsNSRqfc4UQUWtATM3SpI8PAVuEHCeERFwEZzvKMMm LLE5NqHnTBTnHKVlAF3STlAlAGSpQIW7PLPeFSIaDTMecu7CwGMjzObcbz1MSWfYEe2VlHhvDNDxMAon Op0sqXJdOQOrQTFVKh6KqlTnWYWcMGKVBMmzIWNtRD AiGDE0JYu8YKM5UQK1HNZ9KOnuBTd1JgYiBwDeIJl6OhR0HYPwIII8AsC1JAGrSqipZOT5XTT5JFQwDL B9BIE3NJt+ZJ0mVLx+Oh2Tb0DdpcW0lsVaVTz6YeBgJM0VXKQVZ1NAQt== ID Date Data Source [id number] 10/19/2020 05:04:51 PM [facility] Name Value Range Interpretation Code Description Data Linda rce(s) Supporting Document(s) Progress Note [facility] QGGQXo9bVlKQBcSi20/BLVikYCOsf5HcAIqfRDh6DGxmJLSjO0KtWVA6xQ0zLQB5IDdIRoKxSjEjEpI2 lbm [file] HSaw0xdvDvtO2ItFJr/[facility] [place]/ow8QDLENCy8W7pYU5w [file] A7YcGuJO1WXi5LLaH0YPY3mNSkJc4NHOV9MunTJfFpWF9BOIf= ID Date Data Source [id number] 08/07/2020 04:26:46 PM [facility] Name Value Range Interpretation Code Description Data Linda rce(s) Supporting Document(s) Progress Note [facility] HANLZd6pVlNJBoDg22/PKPznPZJvx2QcDVogJAg9XLcbFRHvU0OqUXY4xC6sBMH7XFtHGxQyDdYrOBUa lbm [file] OAd6TtG7PSS9BKBfZn4mLGRTNh1+NAoevZMxzRdxKVAGYjSwSSLjAStpBPGFPy2L ID Date Data Source [id number] 08/07/2020 04:23:35 PM [facility] Name Value Range Interpretation Code Description Data Linda rce(s) Supporting Document(s) Progress Note [facility] SSLIFy3rXbNKYnMk13/SXCplTYQsu9WwFHsaCJi6QAskPXSvN9UiAEY2rC5aBEZ8AOaGDeIjAdDoDXEe lbm [file] ICAgICAgICAgICAgICAgICAgICAgICAgICAgICAgIC AgICAgICAgICAgICAgICAgICAgICAgICAgICAgICAgICAgICAgICAgICAgICAgICAgICAgICANCiAgIC AgICAgICAgICAgICAgICAgICAgICAgICAgICAgICAgICAgICAgICAgICAgICAgICAgICAgICAgICAgIC AgICAgICAgICAgICAgICAgICAgICAgICAgICAgICAg ICAgICANCiAgICAgICAgICAgICAgICAgICAgICAgICAgICAgICAgICAgICAgICAgICAgICAgICAgICAg ICAgICAgICAgICAgICAgICAgICAgICAgICAgICAgICAgICAgICAgICAgICAgICANCiAgICAgICAgICAg ICAgICAgICAgICAgICAgICAgICAgICAgICAgICAgIC AgICAgICAgICAgICAgICAgICAgICAgICAgICAgICAgICAgICAgICAgICAgICAgICAgICAgICAgICANCi AgICAgICAgICAgICAgICAgICAgICAgICAgICAgICAgICAgICAgICAgICAgICAgICAgICAgICAgICAgIC AgICAgICAgICAgICAgICAgICAgICAgICAgICAgICAg ICAgICAgICANCiAgICAgICAgICAgICAgICAgICAgICAgICAgICAgICAgICAgICAgICAgICAgICAgICAg ICAgICAgICAgICAgICAgICAgICAgICAgICAgICAgICAgICAgICAgICAgICAgICAgICANCiAgICAgICAg ICAgICAgICAgICAgICAgICAgICAgICAgICAgICAgIC AgICAgICAgICAgICAgICAgICAgICAgICAgICAgICAgICAgICAgICAgICAgICAgICAgICAgICAgICAgIC ANCiAgICAgICAgICAgICAgICAgICAgICAgICAgICAgICAgICAgICAgICAgICAgICAgICAgICAgICAgIC AgICAgICAgICAgICAgICAgICAgICAgICAgICAgICAg ICAgICAgICAgICANCiAgICAgICAgICAgICAgICAgICAgICAgICAgICAgICAgICAgICAgICAgICAgICAg ICAgICAgICAgICAgICAgICAgICAgICAgICAgICAgICAgICAgICAgICAgICAgICAgICAgICANCiAgICAg ICAgICAgICAgICAgICAgICAgICAgICAgICAgICAgIC AgICAgICAgICAgICAgICAgICAgICAgICAgICAgICAgICAgICAgICAgICAgICAgICAgICAgICAgICAgIC AgICANCjw/aSBqO8ondJPwtqQ2R8ytSr2IPn4MXA5mv5CtZUAwOSqnarIgAqfIVrRpQTIrHpoIPbj1YQ gzMW2QsHDuQ3FhT4JuVEzjAL4NRBXdMSJvpPIeUEUe ZUWgGqB8PSZsBVilJE8IvCLxQJaaYLKfLSAoMmRjBPUhAFPvGSJtCC6VKBKgS149ghFgLa0WVj4EUfAq CS6zzf4FFkJxBSViQlxXBrg7TYbuMO6MfGNywTIaQlCxMLDRUgBkL5wpd8JqOrptSYLIKJhoSR3Ho2Uo dCAxDQo+Fq4HRN3sb7HgXJzgSdHbPH2gzn7RQZzJMi OyU5CjdMnwUSAik4tnOQZkGM6bmHGnKJV1XLfjDQJspmTRTS2gSMWBPPFcbJHfBF9fHl0cZMYgPTDgSj QoUBPPID8GIRAzUSEnyJNyRPKbXVJSLQ6VZKvpVFF0ZDWrqbZkjTRpCYbvMM6KROTlcvMoAkBsAZFJVI o+Qj9EOC9ht5LqEEexVIHjEC1vrv7EXAtXLlYeE9K0 tJOdY1P7CWbcKe1SGERlPLEnLfRaPTQFSWbdIS8AIV6entW1OU5HiLGbWPKoLGXafMRjRQg0E85ruGWb HHfhID1ZNAK+Lisa+Yl6VKBJxCCKrUXPlQlBnSSTBWvQtF0SbP9DTv1TyC3OnRA50uUkohnEuEQlvMM0Q VM3iRAUqXHODAK9QcMDmfM8vabQfOnPgMPFYDgKvT0 9acSIhQXYgZAO3LBAsVc8KOAVkJ7EjewEsuZxpziBkSFWmUCSXGB6KBOoffsVejVIgoRmmKU46cLolUT 7MAi0DNmDrQZ6zoy0UqZNyGm3HGXArKH0ONGXcSONgDYTaLDH2DLEaHuSaPXsoEFChZHBnRCI6RFQbBO OnOR7ZJbUrTHBcCNT5TCKxUPPrIYOmud1CDVXzHAM0 BzH3BsYjLCYqEZFaQFkeBJXhJCFdZNA3JUTsQDQkTQ2DCwIkCCMjXTZlZfwiIPPyLUIiqn3SQDIzQBXn XHN1YTTrMYAbFXCaIBkwQXXlYNV5HoluTODgIGDgDS4ODaGnRHRaIAi9UNGrHYXhTOVmdq2WZYEyGNGg UxQ8RTTuYHGqDQXeVAjaTGXtKJRvGbA1JFHxDGXjYB 6YDwLwGPJzGOQ7NRylPJLxEMPwhq9JASPcEIRyClzhTuOxXXBaZBVcSRaiVSYpPUYlFRp2UYVdEDWmJA 2NXcKbQHXoKFM2RBdiZXQiOQFauz9STLXyGFLvNUG8PKSrCLAyQFVsJGrmVNFpAIM2TaF7CVKqZFQcTG 9PIiUcFMWtEJj9YOJwPYUbCCEadh7ALLCrNIM8EZL9 DzXqHBHuYTGlUJgmNJFoVBT6DOD3DHDtTWQfDF3GHjFcNYMcMFJjNvCxDSIqCSEzad2VYRKfYWW8EBRa QPJrAAUyDLHqFCqmZQUzDAHzOQS2OEAaALPiOY5MPqDjMTXuJLE1WFAwMIWoHTJvvy5BSWAmCQX3CQlm HGHvYUGbPZBxZGjyWKOmADPbLdG4JTUsLSIsRE2LVk KnODJwWOG9GUuuZTCgMFOmpi7BWAOcMHP8Hla4TBAeCASlBLMcLIskWQHtMGViXFI1HKMkTQXrZB3OJj NbBHmyQGCPRpg7YGcdM2d3UZXuBD1UD5Xvh2UcOpruSXTSVUexQY0tkyMcMADxOk4TB5bPAsdlByE9FN kzEaN7IxU1LiU2ZXT0XDLoHFqyCbM7TUX2Sa9aDTUs NzefOMUxVKwhISnqFsn3BvViVrQ0SHSqXZHpBSrmEfCrNS9WLq2SMhW0CZQ1gVTvXi6QHBItZNfOUxSv FV3TWLq= Procedure Social History Code Duration Value Status Description Data Source(s ) Alcohol intake 02/06/2021 12:00:00 AM EDT Current non-d stalin of alcohol (finding) completed Current non-drinker of alcohol (finding) [facility] Tobacco use and exposure 02/06/2021 12:00:00 AM EDT Never used co mpleted Never used [facility] Cigarettes smoked current (pack per day) - Reported 02/07/20 12:00:00 AM EDT UNK completed [facility] Smoking 02/06/2021 12:00:00 AM EDT Never smoker completed Never s moker [facility] Alcohol intake 01/24/2021 12:00:00 AM EDT Current non-d stalin of alcohol (finding) completed Current non-drinker of alcohol (finding) [facility] Alcohol intake 10/19/2020 12:00:00 AM EST Current non-d stalin of alcohol (finding) completed Current non-drinker of alcohol (finding) [facility] Smoking 08/25/2020 12:00:00 AM EST - 09/15/1983 12:00:00 AM EST Patient is a former smoker completed Patient is a former smoker [facility] Alcohol intake 08/07/2020 12:00:00 AM EST Current non-d stalin of alcohol (finding) completed Current non-drinker of alcohol (finding) [facility] Vital Signs ID Date Data Source UNK Name Value Range Interpretation Code Description Data Source(s) Systolic blood pressure 117 mm[Hg] 117 mm[Hg] M [facility] Diastolic blood pressure 80 mm[Hg] 80 mm[Hg] [facility] Heart rate 82 /min 82 /min [facility] Body temperature 96.9 [degF] 96.9 [degF] [facility] Respiratory rate 18 /min 18 /min [facility] ( [facility] Body height 63 [in_i] 63 [in_i] [facility] 5'3" W/C bound Oxygen saturation in Arterial blood by Pulse oximetry 98 % 98 % [facility] [place] body weight 115 [lb_av] 115 [lb_av] [facility] ([facility] ID Date Data Source [id number] 02/06/2021 02:43:[address] [facility] Name Value Range Interpretation Code Description Data Source(s) PREFERRED NAME [facility] ID Date Data Source [id number] 04/23/2021 03:49:[address] [facility] Name Value Range Interpretation Code Description Data Source(s) PREFERRED NAME [facility] ID Date Data Source [id number] 02/06/2021 08:50:18 AM [facility] Value Range Interpretation Code Description Data Source(s) WEIGHT RECORDED 150 lb 150 lb [facility] Body height Measured 62.99 in 62.99 in [facility] PREFERRED NAME [facility] ID Date Data Source [id number] 02/09/2021 02:55:[address] [facility] Name Value Range Interpretation Code Description Data Source(s) WEIGHT RECORDED 151 lb 151 lb [facility] Body height Measured 63 in 63 in [facility] PREFERRED NAME [facility] ID Date Data Source [id number] 01/02/2021 02:21:[address] [facility] Name Value Range Interpretation Code Description Data Source(s) WEIGHT RECORDED 151 lb 151 lb [facility] Body height Measured 63 in 63 in [facility] ID Date Data Source [id number] 05/24/2020 09:54:[address] [facility] Name Value Range Interpretation Code Description Data Source(s) WEIGHT RECORDED 151 lb 151 lb [facility] Body height Measured 63 in 63 in [facility] Patient Treatment Plan of Care Planned Activity Planned Date Details Description Data Source (s) BD Catheter Tip Syringe 60 ML (Catheter Syringes) 01/29/2021 12: 00:00 AM [facility] sodium chloride (preservative free) 0.9 % flush 10 mL 01/24/2021 03:30:00 PM EDT [facility] onabotulinumtoxinA 100 UNT/ML Injectable Solution 01/24/2021 03: 30:00 PM [facility] Gentamicin Sulfate 40 MG/ML Injection Solution (GARAMY FELICITA) 01/23/2021 12:00:00 AM [facility] sodium chloride (preservative free) 0.9 % flush 10 mL 10/19/2020 05:00:[address] [facility] onabotulinumtoxinA 100 UNT/ML Injectable Solution 10/19/2020 05: 00:00 PM [facility] Sodium Chloride 0.154 MEQ/ML Irrigation Solution 09/29/2020 12:00:0 0 AM [facility] methenamine hippurate 1000 MG Oral Tablet 09/13/2020 12:00:00 AM [facility] 24 HR trospium chloride 60 MG Extended Release Oral Ca psule 08/28/2020 12:00:00 AM [facility] calcipotriene 0.05 MG/ML Topical Cream 08/26/2020 12:00:00 AM [facility] Fluticasone Propionate 50 MCG/ACT Nasal Suspension (FL ONASE) 07/02/2020 12:00:00 AM [facility] Azelastine HCl 0.1 % Nasal Solution (ASTELIN) 07/02/2020 12:00:00 A M [facility] gabapentin 300 MG Oral Capsule 04/06/2020 12:00:00 AM [facility]
[2021-07-22 03:39] LABS: AMYLASE 23 U/L (25-115); BLOOD UREA NITROGEN 12 MG/DL (7-18); CALCIUM LEVEL 9.1 MG/DL (8.5-10.1); CARBON DIOXIDE LEVEL 29 MEQ/L (21-32); CHLORIDE LEVEL 107 MEQ/L (98-107); CK-MB VALUE MASS < 1.0 NG/ML (<3.6); CPK CREATINE PHOSPHOKINASE 209 U/L (26-192); CREATININE FOR GFR 0.82 MG/DL (0.55-1.30); GLOMERULAR FILTRATION RATE > 60.0 (>51); GLUCOSE, FASTING 95 MG/DL (70-100); LIPASE 187 U/L (73-393); MB/CK RELATIVE INDEX 0.48 (< OR =4); SODIUM LEVEL 141 MEQ/L (136-145); TROPONIN I < 0.02 NG/ML (< 0.10)
--- NOTE | 2021-07-22 04:07 | REPVR ---
PROCEDURE INFORMATION: Exam: XR Chest Exam date and time: 07/22/2021 2:10 AM Age: 56 years old Clinical indication: Other: Chest pain TECHNIQUE: Imaging protocol: XR of the chest. Views: 1 view. COMPARISON: CR CHEST 2 VIEWS 09/27/2019 3:51 PM FINDINGS: Lungs: Clear. No consolidation. Pleural spaces: No pleural effusion. No pneumothorax. Heart/Mediastinum: Unremarkable. No cardiomegaly. Bones/joints: Prior posterior thoracic fusion. Hardware appears intact. IMPRESSION: No acute findings. Electronically signed by: Julius Snell On 07/22/2021 04:07:00 AM
[2021-07-22] MEDS ORDERED: GI COCKTAIL 50ML BTL(HYOSCYAMINE/MAALOX/LIDOCAINE VISCOUS)(1:3:1) PO ONE (04:15)
[2021-07-22] MEDS ORDERED: ISOVUE-370 76% 100ML VIAL As Ordered ONE (04:25)
[2021-07-22 04:39] LABS: CK-MB VALUE MASS 1.2 NG/ML (<3.6); CPK CREATINE PHOSPHOKINASE 109 U/L (26-192); TROPONIN I < 0.02 NG/ML (< 0.10)
--- NOTE | 2021-07-22 05:20 | REPVR ---
PROCEDURE INFORMATION: Exam: CTA Chest With Contrast Exam date and time: 07/22/2021 4:45 AM Age: 56 years old Clinical indication: Pain; Chest pressure; Additional info: Chest pain TECHNIQUE: Imaging protocol: Computed tomographic angiography of the chest with contrast. 3D rendering (Not supervised by radiologist): MIP and/or 3D reconstructed images were created by the technologist. Radiation optimization: All CT scans at this facility use at least one of these dose optimization techniques: automated exposure control; mA and/or kV adjustment per patient size (includes targeted exams where dose is matched to clinical indication); or iterative reconstruction. Contrast material: ISOVUE 370; Contrast volume: 75 ml; Contrast route: INTRAVENOUS (IV); COMPARISON: CR PORTABLE CHEST X-RAY 07/22/2021 2:00 AM FINDINGS: Pulmonary arteries: Normal. No pulmonary emboli. Aorta: Unremarkable. No aortic aneurysm. No aortic dissection. Veins: An IVC filter is noted. Lungs: Mild dependent atelectasis. No airspace infiltrates or masses. Pleural spaces: No pneumothorax. No pleural effusion. Heart: Unremarkable. No cardiomegaly. No pericardial effusion. Lymph nodes: Unremarkable. No enlarged lymph nodes. Gallbladder and bile ducts: Multiple calculi in the gallbladder. Bones/joints: Posterior thoracic fusion with transpedicular screws and connecting rods. Hardware appears intact. Normal alignment. There is fusion of the T8-9 discs with a large defect in the T9 posterior vertebral body wall and bone fragments displaced into the central spinal canal. Prior T8-9 laminectomy. Soft tissues: Unremarkable. IMPRESSION: 1. No acute findings. 2. Postoperative changes in the thoracic spine as above. 3. Cholelithiasis. Electronically signed by: Julius Snell On 07/22/2021 05:20:06 AM
[2021-07-22 05:45] LABS: ALBUMIN 3.9 GM/DL (3.2-5.2); ALT/SGPT 248 U/L (12-78); BILIRUBIN,DIRECT 0.7 MG/DL (0.0-0.2); BILIRUBIN,TOTAL 1.2 MG/DL (0.2-1.0); TOTAL PROTEIN 7.2 GM/DL (6.4-8.2)
--- NOTE | 2021-07-22 05:53 | ECGEPIP ---
[facility] - ED Test Date: 2021-07-22 Pat Name: MADAY YOUNG Department: Room: - Gender: Female [employer]: KAMALJIT : 1965 Requested By: JAMEL Saucedo Order Number: [id number] Reading MD: Gregory Dior Measurements Intervals [place] Rate: 78 P: 57 WA: 164 QRS: 47 QRSD: 66 T: 65 QT: 406 QTc: 462 Interpretive Statements Normal sinus rhythm Low voltage QRS Nonspecific T wave abnormality SIMILAR TO 02/29/20 Electronically Signed on 07-22-2021 5:52:54 EST by Gregory Dior
--- NOTE | 2021-07-22 07:38 | REPVR ---
PROCEDURE INFORMATION: Exam: US Abdomen, Limited; Right Upper Quadrant Exam date and time: 07/22/2021 6:39 AM Age: 56 years old Clinical indication: Abdominal pain; Acute; Additional info: Elevated liver enzymes TECHNIQUE: Imaging protocol: US abdomen. Real time ultrasound with image documentation. Limited exam focused on the right upper quadrant. COMPARISON: CT ANGIO CHEST 07/22/2021 4:32 AM FINDINGS: Liver: Fatty infiltration of the liver, without focal mass. Gallbladder: Abnormal gallbladder with echogenic bile, cholelithiasis, wall thickening, and pericholecystic fluid. Assessment of a sonographic Coreas sign was not reported by the scanning technologist. Common bile duct: Normal caliber of the incompletely visualized common bile duct measuring 5 mm in diameter. Pancreas: Obscuration of the pancreas by bowel gas. Right kidney: Normal right renal morphology. No hydronephrosis. IMPRESSION: Abnormal gallbladder with echogenic bile, cholelithiasis, wall thickening, and pericholecystic fluid. Electronically signed by: Adama Jones On 07/22/2021 07:37:37 AM
[2021-07-22 07:43] LABS: BASO % 0.4 % (0.0-1.0); EOS # 0.1 10^3/uL (0.0-0.5); EOS % 1.2 % (0.0-3.0); LYMPH # 1.1 10^3/uL (1.5-5.0); LYMPH % 18.6 % (24.0-44.0); MONO # 0.5 10^3/uL (0.0-0.8); MONO % 8.1 % (2.0-8.0); NEUTROPHILS # 4.1 10^3/uL (1.5-8.5); NEUTROPHILS % 71.3 % (36.0-66.0); WHITE BLOOD COUNT 5.7 10^3/uL (4.0-10.0)
[2021-07-22 08:00] VITALS: BP 124/67
[2021-07-22] MEDS ORDERED: HYDR-3713 PO (08:04)
[2021-07-22] MEDS ORDERED: ONDA4TAB6 PO (08:04)
== END 2021-07-22 08:36 | disposition home or self-care (01) ==
LOC: M ED 01:34
DX: K80.50 Calculus of bile duct without cholangitis or cholecystitis without obstruction (principal); Z88.1 Allergy status to other antibiotic agents; Z88.2 Allergy status to sulfonamides; Z88.8 Allergy status to other drugs, medicaments and biological substances
CPT/HCPCS: 71045; 71275; 76705; 80048; 80076; 82150; 82550; 82553; 83690; 84484; 85025; 93005; 93041; 96374; 96375; 99285; J2270; J2405; Q9967

== ENCOUNTER 2021-08-08 15:19 | Outpatient (CLI) | payer BC ==
[~2021-08-08] VITALS: Ht 160 cm; Wt 70.5 kg
[~2021-08-08 15:19] MED LIST changes: +ALBUTEROL 90 MCG/ACT 8GM HFA INHALER INH PRN; +ALBUTEROL SULFATE 2.5 MG/0.5 ML INH NEB SOLN INH PRN; +EPINEPHrine INJ 1 MG/ML 1ML AMP IM PRN; +HYDR-3713 PO; +NS 1,000 ML IV SCH; +diphenhydrAMINE 50MG/ML VIAL (J1200) IV PRN; +methylPREDNISolone 125MG 2ML VIAL IV PRN
[2021-08-08] MEDS ORDERED: CASIRIVIMAB (REGN10933) 600 MG, IMDEVIMAB (REGN10987) 600 MG in NS 250 ML IV ONE (16:00)
[2021-08-08 16:20] VITALS: BP 141/63
[2021-08-08 16:50] VITALS: BP 128/60
[2021-08-08 17:20] VITALS: BP 128/58
[2021-08-08 18:20] VITALS: BP 112/61
[2021-10-16] MEDS ORDERED: FLUTISP NARES (08:38)
[2021-10-16] MEDS ORDERED: OMEGCAP4 PO (08:38)
[2021-10-16] MEDS ORDERED: VITA-48 PO (08:38)
[2021-10-16] MEDS ORDERED: MIRA3350 PO (08:38)
[2021-10-16] MEDS ORDERED: VITAMIN D PO (08:38)
[2021-10-16] MEDS ORDERED: TUMERIC/CURCUMIN PO (08:38)
[2021-10-16] MEDS ORDERED: AZEL1SPR3 (08:38)
[2021-10-16] MEDS ORDERED: VITATAB73 PO (08:38)
[2021-10-16] MEDS ORDERED: VITMTA PO (08:38)
[2021-10-16] MEDS ORDERED: RA P1CAP3 PO (08:38)
[2021-10-16] MEDS ORDERED: ZINC PO (08:38)
[2021-10-16] MEDS ORDERED: HM C500T4 PO (08:38)
== END 2021-08-08 18:20 | disposition home or self-care (01) ==
LOC: M OPCLI4PR 15:19
PROVIDERS: ATTEND Family Medicine
DX: U07.1 COVID-19 (principal); Z88.2 Allergy status to sulfonamides; Z88.8 Allergy status to other drugs, medicaments and biological substances

== ENCOUNTER → 2021-10-02 | Outpatient (REF) | payer BC ==
[~2021-10-02] MED LIST changes: -ALBUTEROL 90 MCG/ACT 8GM HFA INHALER INH PRN; -ALBUTEROL SULFATE 2.5 MG/0.5 ML INH NEB SOLN INH PRN; -EPINEPHrine INJ 1 MG/ML 1ML AMP IM PRN; -NS 1,000 ML IV SCH; -diphenhydrAMINE 50MG/ML VIAL (J1200) IV PRN; -methylPREDNISolone 125MG 2ML VIAL IV PRN
[2021-10-02 17:52] LABS: AMORPHOUS SEDIMENT LARGE (NEGATIVE); APPEARANCE, URINE TURBID (CLEAR); BACTERIA, URINE AUTO 1+ (NEGATIVE); BILIRUBIN, URINE AUTO NEGATIVE (NEGATIVE); BLOOD, URINE BLOOD NEGATIVE (NEGATIVE); COLOR, URINE AMBER (YELLOW); GLUCOSE, URINE (UA) AUTO NEGATIVE (NEGATIVE); KETONE, URINE AUTO NEGATIVE (NEGATIVE); LEUKOCYTE ESTERASE, URINE AUTO 3+ (NEGATIVE); MUCUS, URINE SMALL (NEGATIVE); NITRITE, URINE AUTO NEGATIVE (NEGATIVE); PROTEIN, URINE AUTO NEGATIVE (NEGATIVE); RBC, URINE AUTO 7 /HPF (0-3); SPECIFIC GRAVITY URINE AUTO 1.015 (1.002-1.035); SQUAMOUS EPITHELIAL CELL UR AU 0 /HPF (0-6); UROBILINOGEN, URINE AUTO 0.2 mg/dL (0.0-2.0); WBC, URINE AUTO 63 /HPF (0-3)
== END ==
LOC: M LAB REF 16:52
PROVIDERS: ATTEND Surgery
DX: Z87.440 Personal history of urinary (tract) infections (principal)

== ENCOUNTER → 2021-10-02 | Outpatient (CLI) | payer BC ==
[2021-10-02 17:43] LABS: BASO % 0.7 % (0.0-1.0); EOS # 0.1 10^3/uL (0.0-0.5); EOS % 2.5 % (0.0-3.0); HEMOGLOBIN 13.5 g/dl (12.0-15.5); LYMPH # 1.4 10^3/uL (1.5-5.0); LYMPH % 34.2 % (24.0-44.0); MEAN CORPUSCULAR HEMOGLOBIN 29.4 pg (27.0-33.0); MEAN CORPUSCULAR HGB CONC 32.1 g/dl (32.0-36.5); MEAN CORPUSCULAR VOLUME 91.5 fl (80.0-96.0); MONO # 0.5 10^3/uL (0.0-0.8); MONO % 11.3 % (2.0-8.0); NEUTROPHILS # 2.1 10^3/uL (1.5-8.5); NEUTROPHILS % 51.1 % (36.0-66.0); PLATELET COUNT, AUTOMATED 295 10^3/uL (150-450); RED BLOOD COUNT 4.59 10^6/uL (4.00-5.40); WHITE BLOOD COUNT 4.1 10^3/uL (4.0-10.0)
[2021-10-02 18:17] LABS: ALBUMIN 4.1 GM/DL (3.2-5.2); ALT/SGPT 55 U/L (12-78); BILIRUBIN,TOTAL 0.3 MG/DL (0.2-1.0); BLOOD UREA NITROGEN 12 MG/DL (7-18); CALCIUM LEVEL 9.6 MG/DL (8.5-10.1); CARBON DIOXIDE LEVEL 32 MEQ/L (21-32); CHLORIDE LEVEL 104 MEQ/L (98-107); CHOLESTEROL LEVEL 251 MG/DL (<200); CHOLESTEROL RISK RATIO 4.826 (<5); CREATININE FOR GFR 0.76 MG/DL (0.55-1.30); GLOMERULAR FILTRATION RATE > 60.0 (>51); GLUCOSE, FASTING 97 MG/DL (70-100); HDL CHOLESTEROL 52 MG/DL (>40); LDL CHOLESTEROL 176 MG/DL (<100); NON-HDL-C 199 MG/DL; POTASSIUM SERUM 4.3 MEQ/L (3.5-5.1); SODIUM LEVEL 140 MEQ/L (136-145); TOTAL PROTEIN 7.5 GM/DL (6.4-8.2); TRIGLYCERIDES LEVEL 115 MG/DL (<150)
== END ==
LOC: M PLALAB 15:48
PROVIDERS: ATTEND Family Medicine
DX: Z01.812 Encounter for preprocedural laboratory examination (principal)

== ENCOUNTER → 2021-10-25 | Outpatient (CLI) | payer BC ==
[~2021-10-25] MED LIST changes: +AZEL1SPR3; +FLUTISP NARES; +HM C500T4 PO; +MIRA3350 PO; +OMEGCAP4 PO; +RA P1CAP3 PO; +TUMERIC/CURCUMIN PO; +VITA-48 PO; +VITAMIN D PO; +VITATAB73 PO; +VITMTA PO; +ZINC PO
== END ==
LOC: M LABSMTC 10:24
PROVIDERS: ATTEND Anesthesiology
DX: Z01.818 Encounter for other preprocedural examination (principal); Z11.52 Encounter for screening for COVID-19

== ENCOUNTER 2021-10-30 06:19 | Day surgery (SDC) | payer BC ==
[~2021-10-30] VITALS: Ht 157.5 cm; Wt 65.3 kg
[~2021-10-30 06:19] MED LIST changes: +EMLA CREAM 5GM TUBE (LIDOCAINE/PRILOCAINE) TOP PRN; +LIDOCAINE 1% MDV 20ML VIAL SQ PRN; +LR 1,000 ML IV SCH
[2021-10-30] MEDS ORDERED: BUPIVACAINE HCL 0.25% 30ML VIAL As Ordered ONE (07:46)
[2021-10-30] MEDS ORDERED: MIDAZOLAM INJ 2MG/2ML VIAL (J2250 PER 1MG) As Ordered ONE (08:02)
[2021-10-30] MEDS ORDERED: propofoL 200 MG/20 ML VIAL As Ordered ONE (08:02)
[2021-10-30] MEDS ORDERED: SUGAMMADEX SODIUM 500 MG/5 ML VIAL (BRIDION) As Ordered ONE (08:02)
[2021-10-30] MEDS ORDERED: ONDANSETRON 4MG/2ML VIAL As Ordered ONE (08:02)
[2021-10-30] MEDS ORDERED: LIDOCAINE 2% 100MG/5ML SDV (FOR ANES.) As Ordered ONE (08:02)
[2021-10-30] MEDS ORDERED: KETOROLAC 60MG 2ML VIAL As Ordered ONE (08:02)
[2021-10-30] MEDS ORDERED: fentaNYL 250 MCG/5 ML INJECTION As Ordered ONE (08:02)
[2021-10-30] MEDS ORDERED: dexameTHASONE 4 MG/ML 1ML VIAL (J1100 PER 1MG) As Ordered ONE (08:02)
[2021-10-30] MEDS ORDERED: ROCURONIUM BROMIDE 50 MG/5 ML VIAL As Ordered ONE (08:02)
[2021-10-30] MEDS ORDERED: ACETAMINOPHEN 1000MG 100ML IV BTL (OFIRMEV) (J0131 PER 10MG) As Ordered ONE (08:17)
[2021-10-30] MEDS ORDERED: IBUPROFEN 400MG TAB PO PRN (09:25)
[2021-10-30] MEDS ORDERED: METOCLOPRAMIDE INJ 10MG/2ML VIAL (J2765 PER 1) IV PRN (09:25)
[2021-10-30] MEDS ORDERED: ACETAMINOPHEN TAB 650MG DOSE (2X325MG) PO PRN (09:25)
[2021-10-30] MEDS ORDERED: fentaNYL 100 MCG/2 ML INJECTION IV PRN (09:25)
[2021-10-30] MEDS ORDERED: ONDANSETRON 4MG/2ML VIAL IV PRN (09:25)
[2021-10-30] MEDS ORDERED: PERCOCET 5MG/325MG TAB PO PRN (09:25)
[2021-10-30] MEDS ORDERED: NORCO, ANEXSIA 5/325MG TABLET (HYDROcodone/ACETAMINOPHEN) PO PRN (09:25)
[2021-10-30] MEDS ORDERED: LR 1,000 ML IV SCH (09:25)
[2021-10-30] MEDS ORDERED: FAMOTIDINE INJ 20MG/2ML VIAL (S0028 PER 1) IV ONE (10:40)
[2021-10-30 11:30] VITALS: BP 133/66
== END 2021-10-30 11:59 | disposition home or self-care (01) ==
LOC: M SDC 06:19
PROVIDERS: ATTEND Surgery
DX: K80.10 Calculus of gallbladder with chronic cholecystitis without obstruction (principal); Z88.1 Allergy status to other antibiotic agents; Z88.2 Allergy status to sulfonamides; Z88.8 Allergy status to other drugs, medicaments and biological substances
CPT/HCPCS: 47562; 88304; J0131; J1100; J1885; J2250; J2405; J3010; S2900

== ENCOUNTER → 2023-01-15 | Outpatient (CLI) | payer BC ==
[~2023-01-15] MED LIST changes: -EMLA CREAM 5GM TUBE (LIDOCAINE/PRILOCAINE) TOP PRN; +FLUT50SP17 NARES; -FLUTISP NARES; -LIDOCAINE 1% MDV 20ML VIAL SQ PRN; -LR 1,000 ML IV SCH
[2023-01-15 10:44] LABS: ALBUMIN 4.1 G/DL (3.2-5.2); ALKALINE PHOSPHATASE 71 U/L (46-116); ALT/SGPT 35 U/L (7.0-40); AST/SGOT 21 U/L (<34); BILIRUBIN,DIRECT < 0.1 MG/DL (<0.4); BILIRUBIN,TOTAL 0.4 MG/DL (0.3-1.2); TOTAL PROTEIN 6.7 G/DL (5.7-8.2)
== END ==
LOC: M PLALAB 08:03
PROVIDERS: ATTEND Surgery
DX: R79.89 Other specified abnormal findings of blood chemistry (principal)

== ENCOUNTER → 2023-01-15 | Outpatient (CLI) | payer BC ==
[2023-01-15 10:36] LABS: BASO % 0.6 % (0.0-1.0); EOS # 0.1 10^3/uL (0.0-0.5); EOS % 2.2 % (0.0-3.0); HEMATOCRIT 40.7 % (36.0-47.0); HEMOGLOBIN 13.2 g/dl (12.0-15.5); LYMPH # 1.2 10^3/uL (1.5-5.0); LYMPH % 23.7 % (24.0-44.0); MEAN CORPUSCULAR HGB CONC 32.4 g/dl (32.0-36.5); MEAN CORPUSCULAR VOLUME 92.5 fl (80.0-96.0); MONO # 0.4 10^3/uL (0.0-0.8); MONO % 7.9 % (2.0-8.0); NEUTROPHILS # 3.3 10^3/uL (1.5-8.5); NEUTROPHILS % 65.4 % (36.0-66.0); PLATELET COUNT, AUTOMATED 286 10^3/uL (150-450); WHITE BLOOD COUNT 5.1 10^3/uL (4.0-10.0)
[2023-01-15 10:50] LABS: ALKALINE PHOSPHATASE 71 U/L (46-116); ALT/SGPT 33 U/L (7.0-40); AST/SGOT 22 U/L (<34); BILIRUBIN,TOTAL 0.4 MG/DL (0.3-1.2); BLOOD UREA NITROGEN 13 MG/DL (9-23); CARBON DIOXIDE LEVEL 30 MMOL/L (20-31); CHLORIDE LEVEL 106 MMOL/L (98-107); CHOLESTEROL LEVEL 243 MG/DL (<200); CHOLESTEROL RISK RATIO 4.05 (<5); CREATININE FOR GFR 0.72 MG/DL (0.55-1.30); GLOMERULAR FILTRATION RATE > 60.0 (>51); GLUCOSE, FASTING 81 MG/DL (60-100); HDL CHOLESTEROL 59.9 MG/DL (>40); LDL CHOLESTEROL 167.1 MG/DL (<100); NON-HDL-C 183.1 MG/DL; SODIUM LEVEL 140 MMOL/L (136-145); TOTAL PROTEIN 6.5 G/DL (5.7-8.2); TRIGLYCERIDES LEVEL 80 MG/DL (<150)
== END ==
LOC: M PLALAB 07:59
PROVIDERS: ATTEND Nurse Practitioner Family
DX: Z00.00 Encounter for general adult medical examination without abnormal findings (principal)

== ENCOUNTER → 2023-10-31 | Outpatient (CLI) | payer BC ==
[~2023-10-31] MED LIST changes: -FLUT50SP17 NARES; +FLUTISP NARES; -GABA-283 PO; +GABA-284 PO; -OXYB5TAB10 PO; +OXYB5TAB14 PO
[2023-10-31 11:39] LABS: BASO % 1.1 % (0.0-1.0); EOS # 0.1 10^3/uL (0.0-0.5); EOS % 2.3 % (0.0-3.0); HEMATOCRIT 40.6 % (36.0-47.0); HEMOGLOBIN 13.2 g/dl (12.0-15.5); LYMPH # 1.2 10^3/uL (1.5-5.0); LYMPH % 33.1 % (24.0-44.0); MEAN CORPUSCULAR HEMOGLOBIN 29.8 pg (27.0-33.0); MEAN CORPUSCULAR HGB CONC 32.5 g/dl (32.0-36.5); MEAN CORPUSCULAR VOLUME 91.6 fl (80.0-96.0); MONO # 0.3 10^3/uL (0.0-0.8); MONO % 9.4 % (2.0-8.0); NEUTROPHILS # 1.9 10^3/uL (1.5-8.5); NEUTROPHILS % 53.8 % (36.0-66.0); PLATELET COUNT, AUTOMATED 288 10^3/uL (150-450); RED BLOOD COUNT 4.43 10^6/uL (4.00-5.40); WHITE BLOOD COUNT 3.5 10^3/uL (4.0-10.0)
[2023-10-31 12:08] LABS: ALBUMIN 3.8 G/DL (3.2-5.2); ALKALINE PHOSPHATASE 71 U/L (46-116); ALT/SGPT 67 U/L (7.0-40); AST/SGOT 30 U/L (<34); BILIRUBIN,TOTAL 0.4 MG/DL (0.3-1.2); BLOOD UREA NITROGEN 12 MG/DL (9-23); CALCIUM LEVEL 9.3 MG/DL (8.5-10.1); CARBON DIOXIDE LEVEL 32 MMOL/L (20-31); CHLORIDE LEVEL 107 MMOL/L (98-107); CHOLESTEROL LEVEL 263 MG/DL (<200); CHOLESTEROL RISK RATIO 4.69 (<5); CREATININE FOR GFR 0.69 MG/DL (0.55-1.30); GLOMERULAR FILTRATION RATE > 60.0 (>51); GLUCOSE, FASTING 88 MG/DL (60-100); LDL CHOLESTEROL 186.4 MG/DL (<100); POTASSIUM SERUM 4.1 MMOL/L (3.5-5.1); SODIUM LEVEL 143 MMOL/L (136-145); TOTAL PROTEIN 6.6 G/DL (5.7-8.2); TRIGLYCERIDES LEVEL 103 MG/DL (<150)
== END ==
LOC: M PLALAB 08:03
PROVIDERS: ATTEND Nurse Practitioner Family
DX: Z00.00 Encounter for general adult medical examination without abnormal findings (principal); E78.5 Hyperlipidemia, unspecified

== ENCOUNTER → 2024-11-08 | Outpatient (CLI) | payer BC ==
[~2024-11-08] MED LIST changes: +ONDA-282 PO; -ONDA4TAB6 PO
== END ==
LOC: M PLALAB 09:23
PROVIDERS: ATTEND Nurse Practitioner Family
DX: R05.9 Cough, unspecified (principal)

== ENCOUNTER → 2025-07-05 | Outpatient (REF) | payer BC ==
[~2025-07-05] MED LIST changes: +CEFD300C PO; +CRAN500T4 PO; -HM C500T4 PO; +METH-1100 PO; -METH-855 PO; -METH1CAP4 PO; +METH30CP6 PO
[2025-07-07 14:37] LABS: HPV APTIMA Not Detected (Not Detected)
== END ==
LOC: M LAB REF 16:59
PROVIDERS: ATTEND Nurse Practitioner Family
DX: Z12.4 Encounter for screening for malignant neoplasm of cervix (principal); R87.610 Atypical squamous cells of undetermined significance on cytologic smear of cervix (ASC-US)
CPT/HCPCS: 87624; G0123

== ENCOUNTER 2025-07-14 21:17 | Emergency (ER) | payer BC ==
[~2025-07-14] VITALS: Ht 160 cm; Wt 70.5 kg
[~2025-07-14 21:17] MED LIST changes: -CEFD300C PO
[2025-07-14] MEDS ORDERED: GI COCKTAIL 50 ML BTL(HYOSCYAMINE/MAALOX/LIDOCAINE VISCOUS)(1:3:1) PO ONE (21:40)
[2025-07-14 22:12] LABS: BASO # 0.0 10^3/uL (0.0-0.2); BASO % 0.4 % (0.0-1.0); EOS # 0.1 10^3/uL (0.0-0.5); EOS % 1.8 % (0.0-3.0); LYMPH # 1.2 10^3/uL (1.5-5.0); LYMPH % 16.3 % (24.0-44.0); MONO # 0.6 10^3/uL (0.0-0.8); MONO % 8.5 % (2.0-8.0); NEUTROPHILS # 5.1 10^3/uL (1.5-8.5); NEUTROPHILS % 72.7 % (36.0-66.0); PLATELET COUNT, AUTOMATED 337 10^3/uL (150-450)
[2025-07-14 22:17] LABS: KETONE, URINE AUTO RFX TRACE mg/dL (NEGATIVE); MUCUS, URINE RFX SMALL (NEGATIVE); RBC, URINE AUTO RFX 3 /HPF (0-3); SQUAM EPITHELIAL CELL UR AURFX 0 /HPF (0-6)
[2025-07-14 22:18] LABS: LEUKOCYTE ESTERASE UR AUTO RFX 2+ (NEGATIVE); NITRITE, URINE AUTO RFX POSITIVE (NEGATIVE); WBC, URINE AUTO RFX 51 /HPF (0-3)
[2025-07-14 22:34] LABS: CPK CREATINE PHOSPHOKINASE 91 U/L (34-145)
[2025-07-14 22:40] LABS: CALCIUM LEVEL 9.5 MG/DL (8.3-10.6); CARBON DIOXIDE LEVEL 30 MMOL/L (20-31); CHLORIDE LEVEL 101 MMOL/L (98-107); CK-MB VALUE MASS < 1.0 NG/ML (<3.6); CREATININE FOR GFR 0.78 MG/DL (0.55-1.30); FREE T4 1.25 NG/DL (0.89-1.76); GLOMERULAR FILTRATION RATE 86.4 (>45); MAGNESIUM LEVEL 1.9 MG/DL (1.8-2.4); POTASSIUM SERUM 3.6 MMOL/L (3.5-5.1); SODIUM LEVEL 141 MMOL/L (136-145)
[2025-07-14] MEDS: cefTRIAXone SOD 1 GM in DEXTROSE 5% (D5W) ADV/MINI-BAG 50 ML IV ONE (22:58)
[2025-07-14 23:36] LABS: CK-MB VALUE MASS < 1.0 NG/ML (<3.6)
[2025-07-14 23:37] LABS: CPK CREATINE PHOSPHOKINASE 83 U/L (34-145)
[2025-07-14] MEDS ORDERED: CEFD300C PO (23:40)
[2025-07-14 23:45] VITALS: BP 113/55; TEMP 97.3; O2SAT 98
== END 2025-07-14 23:45 | disposition home or self-care (01) ==
LOC: M ED 21:17
DX: R55 Syncope and collapse (principal); N39.0 Urinary tract infection, site not specified; K21.9 Gastro-esophageal reflux disease without esophagitis; Z79.2 Long term (current) use of antibiotics; Z79.899 Other long term (current) drug therapy
CPT/HCPCS: 51701; 71045; 80048; 81001; 82550; 82553; 83605; 83735; 84439; 84443; 84484; 85025; 87088; 87186; 93005; 93041; 94760; 96365; 99285; J0696